=== PATIENT | female | born 1950 | race Caucasian/White ===

== ENCOUNTER 2020-03-17 07:15 | Outpatient (REF) | payer MEDICARE, SELFPAY ==
[2020-03-17 09:00] LABS: Alanine Aminotransferase 19 U/L (0-31); Alkaline Phosphatase 78 U/L (39-117); Aspartate Amino Transferase 22 U/L (5-31); Bilirubin Total 0.5 mg/dL (0.0-1.0); Blood Urea Nitrogen 13 mg/dL (9-16); Cholesterol 190 mg/dL; Estimated Glomerular Filt Rate > 60; Glucose Fasting 100 mg/dL (60-99); HDL Cholesterol 76 mg/dL; LDL Cholesterol Calculated 104 mg/dl; Total Protein 6.2 g/dL (6.5-8.0); Triglycerides 52 mg/dL
[2020-03-17 09:12] LABS: TSH reflex Free T4 0.73 mIU/mL (0.32-4.0)
[2020-03-17 09:25] LABS: Anion Gap 13 (12-20); Carbon Dioxide 29 mmol/L (22-29); Chloride 107 mmol/L (96-108); Potassium 4.2 mmol/l (3.3-5.1); Sodium 145 mmol/L (135-145)
== END 2020-03-17 07:16 | disposition home or self-care (01) ==
LOC: HO.LAB 07:15
PROVIDERS: Absent Provider Internal Medicine Endocrinology, Diabetes & Metabolism; PCP Internal Medicine; Visit Provider Internal Medicine
DX: E78.00 Pure hypercholesterolemia, unspecified (principal); E03.9 Hypothyroidism, unspecified
CPT/HCPCS: 36415; 80053; 80061; 84443

== ENCOUNTER 2020-05-19 10:54 | Outpatient (REF) | payer MEDICARE, SELFPAY ==
--- NOTE | ~2020-05-19 | XR_ITS ---
EXAMINATION: XR HUMERUS, LEFT CLINICAL INFORMATION: Left arm pain. COMPARISON: None TECHNIQUE: AP and lateral views of the left humerus. FINDINGS: The bones and soft tissues are normal. No fracture. Imaged portions of the shoulder and elbow are unremarkable. XR/XR humerus LT IMPRESSION: Unremarkable left humerus.
--- NOTE | ~2020-05-19 | XR_ITS ---
EXAMINATION: XR SHOULDER, LEFT CLINICAL INFORMATION: Left shoulder pain. COMPARISON: None TECHNIQUE: AP external rotation, Grashey, scapular Y, and axillary views of the left shoulder. FINDINGS: The bones and soft tissues are normal. No fracture. Glenohumeral and acromioclavicular alignment is anatomic with normal joint space. No abnormal soft tissue calcifications. XR/XR shoulder LT min 2V IMPRESSION: Unremarkable left shoulder.
== END 2020-05-19 10:55 | disposition home or self-care (01) ==
LOC: HO.XRAY 10:54
PROVIDERS: PCP Internal Medicine; Visit Provider Internal Medicine
DX: M25.512 Pain in left shoulder (principal); M79.602 Pain in left arm
CPT/HCPCS: 73030; 73060

== ENCOUNTER 2020-11-12 14:16 | Outpatient (REF) | payer SELFPAY ==
--- NOTE | 2020-11-12 16:25 | MHC.AU.CER ---
Cerumen Removal- Binaural Date of Visit: 11/12/20 Medical Conditions: No Conditions of Concern for Cerumen Removal Medications: No Medications of Concern for Cerumen Removal Procedure: Right Ear: Unusual Findings: Narrow Canal(s), Deeply Impacted Cerumen Prior to Removal: Complete Occlusion Outcome of Procedure: All cerumen was removed. Tympanic membrane is now visible. Other: Used suction and lighted curette Left Ear: Unusual Findings: Narrow Canal(s), Reddended Skin, Deeply Impacted Cerumen Prior to Removal: Complete Occlusion Outcome of Procedure: Encountered difficulty removing cerumen. Cerumen softening drops used. Most cerumen was removed. Tympanic membrane is now visible. Irritation/Redness Other: Used suction, lighted curette, and alligator forceps Recommendations: Recommendations: Follow-up as needed. Use of cerumen drops, such as Debrox or EarWaxMD Diagnosis Code(s): Primary Diagnosis: H69.93 Unspecified Eustachian Tube Dysfunction, Bilateral Services Performed: Cerumen Removal (CPT 06954) Two Ears Signature: Provider: Imelda Kimbrough, CCC-A
== END 2020-11-12 14:17 | disposition home or self-care (01) ==
LOC: HO.HAP 14:16
PROVIDERS: Visit Provider Internal Medicine
DX: H69.93 Unspecified Eustachian tube disorder, bilateral (principal)
CPT/HCPCS: 92700

== ENCOUNTER 2020-12-07 07:44 | Outpatient (REF) | payer MEDICARE, SELFPAY ==
--- NOTE | 2020-12-07 09:50 | ECG_ITS ---
Test Reason : chest pain Blood Pressure : / mmHG Vent. Rate : 068 BPM Atrial Rate : 068 BPM P-R Int : 134 ms QRS Dur : 086 ms QT Int : 396 ms P-R-T Axes : 017 060 012 degrees QTc Int : 421 ms Normal sinus rhythm Septal infarct , age undetermined Abnormal ECG No previous ECGs available Referred By: Nicole Carey Electronically Signed By:CARLOS BRISENO
[2020-12-07 11:04] LABS: Alanine Aminotransferase 17 U/L (0-31); Albumin Level 3.9 g/dL (3.5-5.0); Alkaline Phosphatase 63 U/L (39-117); Anion Gap 9 (12-20); Aspartate Amino Transferase 21 U/L (5-31); Bilirubin Total 0.7 mg/dL (0.0-1.0); Blood Urea Nitrogen 15 mg/dL (9-16); Calcium 9.3 mg/dL (8.4-10.2); Carbon Dioxide 30 mmol/L (22-29); Chloride 106 mmol/L (96-108); Cholesterol 196 mg/dL; Estimated Glomerular Filt Rate 58; Glucose Fasting 102 mg/dL (60-99); HDL Cholesterol 74 mg/dL; LDL Cholesterol Calculated 109 mg/dl; Potassium 4.3 mmol/L (3.3-5.1); Sodium 141 mmol/L (135-145); Total Protein 6.2 g/dL (6.5-8.0); Triglycerides 68 mg/dL
[2020-12-07 11:24] LABS: TSH reflex Free T4 0.55 uIU/mL (0.32-4.0)
== END 2020-12-07 07:45 | disposition home or self-care (01) ==
LOC: HO.10HDL 07:44
PROVIDERS: PCP Internal Medicine; Visit Provider Internal Medicine
DX: R07.9 Chest pain, unspecified (principal); E78.5 Hyperlipidemia, unspecified; E78.00 Pure hypercholesterolemia, unspecified; E03.9 Hypothyroidism, unspecified
CPT/HCPCS: 36415; 80053; 80061; 84443; 93005

== ENCOUNTER 2020-12-30 08:11 | Outpatient (REF) | payer MEDICARE, SELFPAY ==
--- NOTE | ~2020-12-30 | FL_ITS ---
EXAMINATION: XR GI SERIES CLINICAL INFORMATION: Epigastric pain. COMPARISON: None. TECHNIQUE: Routine upper GI air-contrast study was performed in upright and lying position. FINDINGS: Following oral administration of thick barium and effervescent granules, there is normal propagation of bolus from the oral cavity through the pharynx and esophagus and into the stomach without any evidence of obstruction, narrowing or stricture. On placing patient supine and prone lying, the course, caliber and peristalsis of stomach, duodenal bulb and the sweep are normal. No gastroesophageal reflux or hiatal hernia seen. FLUOROSCOPY TIME: 1.9 minutes. DOSE AREA PRODUCT: 13.072 uGy-m2 (microgray-meter squared). FL/FL upper GI series IMPRESSION: Unremarkable upper GI air-contrast study.
== END 2020-12-30 08:12 | disposition home or self-care (01) ==
LOC: HO.XRAY 08:11
PROVIDERS: Visit Provider Internal Medicine
DX: R10.13 Epigastric pain (principal)
CPT/HCPCS: 74240

== ENCOUNTER → 2021-01-06 07:51 | Outpatient (REF) | payer MEDICARE, SELFPAY ==
--- NOTE | 2021-01-06 08:00 | CA_ITS ---
Acquisition Time: 2021-01-06 08:12:45 Total Exercise Time: 00:05:30 Test Indications: Chest Pain Medications: PROLIA LEVOTHYROXINE ATORVASTATIN Protocol: MENDOZA Max HR: 144 BPM 94% of Pred: 152 BPM Max BP: 158/058 mmHG Max Work Load: 7.0 METS Exercise stress test with exercise 7 min 20 sec of mendoza protocol, with mild sob and mild chest tightness, with isolated PVC, with normotensive response to exercise, with EKG changes meeting criteria for ischemia: 1 - [address] depressions inferiorly, V3- V6, [address] elevation aVR with gradual improvement back to baseline in recovery. In Recovery her sob and chest tightness quickly resolved. EKG tracings and report reviewed with Dr Shannon. Pt informed of the above results. Instructed to start on Aspirin 81mg daily. Continue Atorvastatin. Light physical activity. Cardiology appnt will be moved to sooner date. Referred By: Nicole Carey Overread By: JAYNA MARTINEZ
== END ==
LOC: HO.CARD 07:51
PROVIDERS: Visit Provider Internal Medicine
DX: R94.31 Abnormal electrocardiogram [ECG] [EKG] (principal)
CPT/HCPCS: 93017

== ENCOUNTER → 2021-01-11 14:27 | Outpatient (BNVA) | payer MEDICARE, SELFPAY | PROVIDERS: PCP Internal Medicine; Referring Provider Internal Medicine; Visit Provider Internal Medicine | DX: R07.2 Precordial pain (principal); R94.39 Abnormal result of other cardiovascular function study | CPT/HCPCS: 99202 ==

== ENCOUNTER → 2021-01-18 10:51 | Outpatient (REF) | payer MEDICARE, SELFPAY ==
--- NOTE | 2021-01-18 11:00 | CA_ITS ---
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 The calculated ejection fraction is 69% by biplane method. - No obvious valvular pathology seen on this study. Findings Left Ventricle Normal left ventricular cavity size. The left ventricular systolic function is normal. The calculated ejection fraction is 69% by biplane method. There is no evidence of regional wall motion abnormalities. E/E prime ratio is between 8 and 15 consistent with indeterminate filling pressures. Evidence suggests grade I (mild) diastolic dysfunction. LV peak GLS -17.1%. Right Ventricle Normal right ventricular cavity size and systolic function. Atria Both atria are normal in size. Aortic Valve There is a normal trileaflet aortic valve. There is no aortic valve stenosis. There is no aortic valve regurgitation. Mitral Valve The mitral valve appears normal. There is mild mitral valve regurgitation. There is no mitral valve stenosis. Pulmonic Valve The pulmonic valve was not well visualized. Tricuspid Valve There is trace tricuspid valve regurgitation. The pulmonary artery systolic pressure is normal. Great Vessels The aortic annulus, sinuses of valsalva, and asc aorta are normal in size. Venous The inferior vena cava is normal in size and collapses greater than 50% with inspiration. Pericardium/Pleural There is no evidence of pericardial effusion. Prior Study Comparison No prior study available for comparison. Recommendations, Care & Conclusions No obvious valvular pathology seen on this study. Measurements 2D Linear Measurements IVSd: 0.84 0.6-0.9/0.6-1.0 cm LVIDd: 4.00 3.9-5.3/4.2-5.9 cm LVIDd Index: 2.63 2.4-3.2/2.2-3.1 cm/m2 LVIDs: 2.40 2.0-3.6 cm LVPWd: 0.83 0.7-1.1 cm Ao Root: 2.40 2.1-3.5 cm LA Diam: 2.90 2.7-3.8/3.0-4.0 cm LAIDs Index: 1.91 1.5-2.3 cm/m2 LV Mass: 122.41 67-162/88-224 g LV Mass Index: 80.54 43-95/49-115 g/m2 LVOT Diam: 1.80 3.0+(-)1.3 cm 2D Systolic Function EF 4C: 74.60 >55% EF 2C: 61.20 >55% EF BiP: 69.10 >55% Mitral Valve MV Pk E: 0.61 MV PK A: 0.91 MV Decel Time: 214.00 E/A: 0.70 E'Lateral: 9.25 E'Medial: 4.57 E/E' Med: 13.30 E/E' Lat: 6.60 PHT: 63.00 MVA PHT: 3.49 Decel [place]: 2.85 Aortic Valve AoV Pk Fabio: 1.40 AoV Pk Grad: 8.00 LVOT LVOT Pk Fabio: 1.03 LVOT Mn Fabio: 0.66 LVOT VTI: 0.23 LVOT Pk Grad: 4.00 LVOT Mn Grad: 2.00 LVOT Diam: 1.80 LVOT Area: 2.54 Diastolic Function MV Pk E: 0.61 MV Pk A: 0.91 E/A: 0.70 E'Medial: 4.57 E/E' Med: 13.30 E' Laterial: 9.25 E/E' Lat: 6.60 Right Ventricle TAPSE (mm): 2.08 Tricuspid Valve TR Pk Fabio: 2.08 TR Pk Grad: 17.00 RA Press: 3.00 RVSP: 20.00 Great Vessels Aorta Ao Root-2D: 2.40 2.0-3.7 cm Ao Asc: 2.90 2.1-3.4 cm Updated in Other Vendor System with Status of Final Galdino Shannon MD electronically signed on 01/19/2021 1:11:17 PM with status of Final
[2021-01-18 11:15] LABS: MANUAL DIFF FLAG NO
[2021-01-18 11:59] LABS: Basophils Percent Auto 0.4 % (0-2); Eosinophils Absolute Auto 0.1 X10*3/uL (0.0-0.4); Hematocrit 40.1 % (37.0-47.0); Hemoglobin 13.3 g/dl (12.0-16.0); Imm Gran Abs Auto 0.02 X10*3/uL (0.00-0.03); Imm Gran Pct Auto 0.4 % (0.0-0.4); Lymphocytes Absolute Auto 1.6 X10*3/uL (1.2-4.9); Lymphocytes Percent Auto 29.3 % (20-40); Mean Corpuscular HGB Conc 33.2 g/dl (31.0-35.0); Mean Corpuscular Hemoglobin 30.8 pg (27.0-33.0); Mean Corpuscular Volume 92.8 fL (80.0-98.0); Mean Platelet Volume 10.7 fL (9.4-12.3); Monocytes Absolute Auto 0.3 X10*3/uL (0.1-1.2); Monocytes Percent Auto 6.1 % (2-11); Neutrophils Absolute Auto 3.4 x10*3/uL (2.0-8.3); Neutrophils Percent Auto 61.8 % (45-73); Platelet Count 198 X10*3/uL (160-400); Red Blood Count 4.32 X10*6/uL (4.20-5.50); White Blood Count 5.4 X10*3/uL (4.8-10.8)
[2021-01-18 12:04] LABS: Prothrombin Time 11.4 SEC (9.9-13.0)
[2021-01-18 12:35] LABS: Anion Gap 12 (12-20); Blood Urea Nitrogen 14 mg/dL (9-16); Calcium 9.6 mg/dL (8.4-10.2); Carbon Dioxide 28 mmol/L (22-29); Chloride 105 mmol/L (96-108); Estimated Glomerular Filt Rate > 60; Glucose Random 98 mg/dL (60-115); Potassium 4.7 mmol/L (3.3-5.1); Sodium 140 mmol/L (135-145)
== END ==
LOC: HO.CARD 10:51
PROVIDERS: PCP Internal Medicine; Visit Provider Internal Medicine
DX: R07.2 Precordial pain (principal)
CPT/HCPCS: 36415; 80048; 85025; 85610; 93306; 93356

== ENCOUNTER 2021-01-25 12:42 | Outpatient (REF) | payer MEDICARE, SELFPAY ==
[2021-01-25 13:45] LABS: COVID-19 Test Negative (Negative)
== END 2021-01-25 12:43 | disposition home or self-care (01) ==
LOC: HO.LAB 12:42
PROVIDERS: PCP Internal Medicine; Visit Provider Internal Medicine
DX: Z20.822 Contact with and (suspected) exposure to COVID-19 (principal); R07.2 Precordial pain
CPT/HCPCS: 36415; 87635

== ENCOUNTER → 2021-02-11 13:53 | Outpatient (BNVA) | payer MEDICARE, SELFPAY | PROVIDERS: PCP Internal Medicine; Referring Provider Internal Medicine; Visit Provider Internal Medicine | DX: I25.10 Atherosclerotic heart disease of native coronary artery without angina pectoris (principal); I65.21 Occlusion and stenosis of right carotid artery; Z95.1 Presence of aortocoronary bypass graft; Z51.81 Encounter for therapeutic drug level monitoring; Z79.899 Other long term (current) drug therapy | CPT/HCPCS: 93005; 99212 ==

== ENCOUNTER 2021-02-22 09:18 | Outpatient (REF) | payer MEDICARE, SELFPAY ==
[2021-02-22 10:07] LABS: Hematocrit 35.8 % (37.0-47.0); Hemoglobin 11.6 g/dl (12.0-16.0); Mean Corpuscular HGB Conc 32.4 g/dl (31.0-35.0); Mean Corpuscular Hemoglobin 30.9 pg (27.0-33.0); Mean Corpuscular Volume 95.2 fL (80.0-98.0); Platelet Count 323 X10*3/uL (160-400); Red Blood Count 3.76 X10*6/uL (4.20-5.50); Red Cell Distribution Width 14.2 % (11.0-16.0)
[2021-02-22 10:41] LABS: Alanine Aminotransferase 16 U/L (0-31); Albumin Level 3.8 g/dL (3.5-5.0); Alkaline Phosphatase 109 U/L (39-117); Anion Gap 12 (12-20); Aspartate Amino Transferase 18 U/L (5-31); Bilirubin Total 0.3 mg/dL (0.0-1.0); Blood Urea Nitrogen 16 mg/dL (9-16); Calcium 9.3 mg/dL (8.4-10.2); Carbon Dioxide 26 mmol/L (22-29); Chloride 105 mmol/L (96-108); Estimated Glomerular Filt Rate 53; Glucose Random 118 mg/dL (60-115); Potassium 3.9 mmol/L (3.3-5.1); Sodium 139 mmol/L (135-145); Total Protein 6.3 g/dL (6.5-8.0)
== END 2021-02-22 09:19 | disposition home or self-care (01) ==
LOC: HO.10HDL 09:18
PROVIDERS: Visit Provider Nurse Practitioner Family
DX: Z95.1 Presence of aortocoronary bypass graft (principal)
CPT/HCPCS: 36415; 80053; 85027

== ENCOUNTER → 2021-04-15 08:25 | Outpatient (REF) | payer MEDICARE, SELFPAY ==
--- NOTE | 2021-04-15 08:28 | CA_ITS ---
Transthoracic Echocardiogram Patient (Last, First, Middle): Elsie Muñoz M Gender: Female Date of : 1950 Age: 71 Procedure Date: 04/15/2021 Procedure Type: Transthoracic Echocardiogram Location: OP Height: 152.4 cm Weight: 53.98 kg BSA: 1.50 m2 Heart Rate: bpm BP: 98 / 60 mmHg Telephone Clerk: DANIEL Referring MD: Galdino Shannon MD Symptoms: Z95.1 - Presence of aortocoronary bypass graft Study Quality: Good ECG Rhythm: Sinus Conclusions: - The left ventricular systolic function is normal. The calculated ejection fraction is 63% by biplane method. - No obvious valvular pathology seen on this study. Findings Left Ventricle Normal left ventricular cavity size. There is normal left ventricular wall thickness. The left ventricular systolic function is normal. The calculated ejection fraction is 63% by biplane method. There is no evidence of regional wall motion abnormalities. Diastolic function is normal for age. Right Ventricle Normal right ventricular cavity size. There is low normal right ventricular systolic function. Atria Both atria are normal in size. Aortic Valve There is a normal trileaflet aortic valve. There is mild calcification of the aortic valve. There is no aortic valve stenosis. There is no aortic valve regurgitation. Mitral Valve The mitral valve appears normal. There is trace mitral valve regurgitation. There is no mitral valve stenosis. Pulmonic Valve The pulmonic valve was not well visualized. Tricuspid Valve Normal tricuspid valve structure. There is mild tricuspid valve regurgitation. The pulmonary artery systolic pressure is normal. Great Vessels The aortic annulus, sinuses of valsalva, asc aorta, and aortic arch are normal in size. Venous The inferior vena cava is normal in size and collapses greater than 50% with inspiration. Pericardium/Pleural There is no evidence of pericardial effusion. Prior Study Comparison No significant change compared to prior study dated: 01/18/2021. Recommendations, Care & Conclusions No obvious valvular pathology seen on this study. Measurements 2D Linear Measurements IVSd: 0.83 0.6-0.9/0.6-1.0 cm LVIDd: 3.57 3.9-5.3/4.2-5.9 cm LVIDd Index: 2.38 2.4-3.2/2.2-3.1 cm/m2 LVIDs: 1.99 2.0-3.6 cm LVPWd: 1.05 0.7-1.1 cm Ao Root: 2.60 2.1-3.5 cm LA Diam: 3.00 2.7-3.8/3.0-4.0 cm LAIDs Index: 2.00 1.5-2.3 cm/m2 LV Mass: 120.85 67-162/88-224 g LV Mass Index: 80.57 43-95/49-115 g/m2 LVOT Diam: 1.80 3.0+(-)1.3 cm 2D Systolic Function EF 4C: 64.40 >55% EF 2C: 61.30 >55% EF BiP: 63.10 >55% Mitral Valve MV Pk E: 0.96 MV PK A: 0.78 MV Decel Time: 235.00 E/A: 1.20 E'Lateral: 12.70 E'Medial: 6.53 E/E' Med: 14.70 E/E' Lat: 7.60 PHT: 69.00 MVA PHT: 3.19 Decel [place]: 4.08 Aortic Valve AoV Pk Fabio: 1.70 AoV Mn Fabio: 1.20 AoV VTI: 0.38 AoV Pk Grad: 12.00 Aov Mn Grad: 6.00 SERENA Cont.VTI: 1.97 LVOT LVOT Pk Fabio: 1.10 LVOT Mn Fabio: 0.79 LVOT VTI: 0.30 LVOT Pk Grad: 5.00 LVOT Mn Grad: 3.00 LVOT Diam: 1.80 LVOT Area: 2.54 Diastolic Function MV Pk E: 0.96 MV Pk A: 0.78 E/A: 1.20 E'Medial: 6.53 E/E' Med: 14.70 E' Laterial: 12.70 E/E' Lat: 7.60 Right Ventricle TAPSE (mm): 17.70 TVS' Fabio: 9.03 Tricuspid Valve TR Pk Fabio: 2.32 TR Pk Grad: 22.00 RA Press: 3.00 RVSP: 25.00 Great Vessels Aorta Ao Root-2D: 2.60 2.0-3.7 cm Ao Asc: 2.60 2.1-3.4 cm Ao Arch: 2.40 Updated in Other Vendor System with Status of Final Galdino Shannon MD electronically signed on 04/17/2021 11:53:24 AM with status of Final
== END ==
LOC: HO.CARD 08:25
PROVIDERS: PCP Internal Medicine; Visit Provider Internal Medicine
DX: Z95.1 Presence of aortocoronary bypass graft (principal)
CPT/HCPCS: 93306

== ENCOUNTER 2021-04-22 08:24 | Outpatient (REF) | payer MEDICARE, SELFPAY ==
[2021-04-22 10:13] LABS: Cholesterol 150 mg/dL; HDL Cholesterol 65 mg/dL; LDL Cholesterol Calculated 75 mg/dl; Triglycerides 54 mg/dL
[2021-04-22 10:15] LABS: Alanine Aminotransferase 28 U/L (0-31); Albumin Level 4.1 g/dL (3.5-5.0); Alkaline Phosphatase 84 U/L (39-117); Anion Gap 11 (12-20); Aspartate Amino Transferase 28 U/L (5-31); Bilirubin Total 0.7 mg/dL (0.0-1.0); Blood Urea Nitrogen 20 mg/dL (9-16); Calcium 9.9 mg/dL (8.4-10.2); Carbon Dioxide 29 mmol/L (22-29); Chloride 103 mmol/L (96-108); Estimated Glomerular Filt Rate 52; Glucose Fasting 101 mg/dL (60-99); Potassium 4.4 mmol/L (3.3-5.1); Sodium 139 mmol/L (135-145); Total Protein 6.9 g/dL (6.5-8.0)
[2021-04-22 10:37] LABS: Thyroid Stimulating Hormone 0.48 uIU/mL (0.32-4.0)
== END 2021-04-22 08:25 | disposition home or self-care (01) ==
LOC: HO.LAB 08:24
PROVIDERS: PCP Internal Medicine; Referring Provider Internal Medicine; Visit Provider Internal Medicine
DX: E78.00 Pure hypercholesterolemia, unspecified (principal); E78.5 Hyperlipidemia, unspecified; E03.9 Hypothyroidism, unspecified; I25.10 Atherosclerotic heart disease of native coronary artery without angina pectoris; I65.21 Occlusion and stenosis of right carotid artery; Z79.899 Other long term (current) drug therapy; Z79.82 Long term (current) use of aspirin; Z95.1 Presence of aortocoronary bypass graft
CPT/HCPCS: 36415; 80053; 80061; 84443; 99212

== ENCOUNTER 2021-07-28 08:04 | Outpatient (REF) | payer MEDICARE, SELFPAY ==
--- NOTE | 2021-07-28 16:26 | MHC.AU.ANR ---
Adult Audiological Evaluation Date of Visit: 07/28/21 Reason for Appointment: Mrs. Muñoz was seen today for an audiological evaluation as recommended by her primary care physician. She notes that her PCP recommended having a baseline audiogram. Mrs. Muñoz denies any significant concerns for her hearing and feels she overall hears well. She denies any tinnitus, vertigo, or history of noise exposure. Does patient feel they have a hearing loss?: No Has hearing been tested previously?: No Hearing Handicap Inventory: HHIE SCORE: 0 Based on HHIE score, patient has: No perceived hearing handicap Ear History: Ear Infections in Childhood: Both Ears History of Ear Wax Buildup: Both Ears Medical History: Medical History: Heart Problems, Thyroid Disease Medical History (Other): Cardiac surgery 01/2021, child in 1984 and 1987, tonsillectomy/adenoidectomy, broken leg 1976 Allergies: NKA Medication List: Synthroid, statin, baby aspirin, metoprolol, multivitamin, Preservision, calcium Otoscopy: Right Ear: Unremarkable Left Ear: Unremarkable Tympanometry: Tympanometry performed due to: To assess integrity of the middle ear system Right Ear: Normal Middle Ear System (Type A) Left Ear: Normal Middle Ear System (Type A) Hearing Evaluation: Transducer(s) Used: Insert Earphones Method: Conventional Audiometry Stimuli Used: Pure Tones Right Ear: Description of Hearing: Normal hearing from 250-8000 Hz. Left Ear: Description of Hearing: Normal hearing from 250-8000 Hz. Speech Recognition Threshold (SRT): Method Used: Monitored Live Voice Stimuli Used: Spondee Words Right Ear: 10 dBHL Left Ear: 5 dBHL Word Discrimination: Method: Recorded Lists Word Lists Used: NU-6 Right Ear: 100% at 50 dBHL Left Ear: 100% at 50 dBHL Interpretation of Results: Today's evaluation indicates normal hearing, excellent speech understanding at a normal conversational volume, and normal middle-ear function bilaterally. Recommendations: No further audiological action is indicated at this time. Audiological re-evaluation if changes are noted. Diagnosis: Primary Diagnosis: H93.293 Abnormal Auditory Perception Services Performed: Services Performed: Pure Tone- Air (CPT 32433) Speech Audiometry Threshold, with Speech Recognition (CPT 43009) Tympanometry (CPT 14659) Signature: Provider: Imelda Kimbrough, CCC-A
== END 2021-07-28 08:05 | disposition home or self-care (01) ==
LOC: HO.SH 08:04
PROVIDERS: Visit Provider Internal Medicine
DX: Z01.118 Encounter for examination of ears and hearing with other abnormal findings (principal); H93.293 Other abnormal auditory perceptions, bilateral
CPT/HCPCS: 92552; 92556; 92567

== ENCOUNTER → 2021-10-26 07:50 | Outpatient (BNVA) | payer MEDICARE, SELFPAY | PROVIDERS: PCP Internal Medicine; Referring Provider Internal Medicine; Visit Provider Internal Medicine | DX: I25.10 Atherosclerotic heart disease of native coronary artery without angina pectoris (principal); I65.21 Occlusion and stenosis of right carotid artery; Z79.82 Long term (current) use of aspirin; Z79.899 Other long term (current) drug therapy; Z95.1 Presence of aortocoronary bypass graft | CPT/HCPCS: 99212 ==

== ENCOUNTER 2021-12-01 07:32 | Outpatient (REF) | payer MEDICARE, SELFPAY ==
[2021-12-01 10:58] LABS: Alanine Aminotransferase 52 U/L (0-31); Albumin Level 4.1 g/dL (3.5-5.0); Alkaline Phosphatase 76 U/L (39-117); Anion Gap 13 (12-20); Aspartate Amino Transferase 50 U/L (5-31); Bilirubin Total 0.9 mg/dL (0.0-1.0); Blood Urea Nitrogen 21 mg/dL (9-16); Calcium 9.4 mg/dL (8.4-10.2); Carbon Dioxide 29 mmol/L (22-29); Chloride 104 mmol/L (96-108); Cholesterol 158 mg/dL; Estimated Glomerular Filt Rate 54; Glucose Fasting 102 mg/dL (60-99); HDL Cholesterol 65 mg/dL; LDL Cholesterol Calculated 81 mg/dl; Potassium 4.2 mmol/L (3.3-5.1); Sodium 142 mmol/L (135-145); Total Protein 6.5 g/dL (6.5-8.0); Triglycerides 63 mg/dL
[2021-12-01 11:21] LABS: Thyroid Stimulating Hormone 0.96 uIU/mL (0.32-4.0)
== END 2021-12-01 07:33 | disposition home or self-care (01) ==
LOC: HO.10HDL 07:32
PROVIDERS: Absent Provider Internal Medicine Endocrinology, Diabetes & Metabolism; Visit Provider Internal Medicine
DX: Z13.89 Encounter for screening for other disorder (principal)
CPT/HCPCS: 36415; 80053; 80061; 84443

== ENCOUNTER 2021-12-01 08:39 | Outpatient (REF) | payer MEDICARE, SELFPAY ==
--- NOTE | ~2021-12-01 | US_ITS ---
EXAMINATION: US EXTRACRANIAL CAROTID DUPLEX, BILATERAL CLINICAL INFORMATION: Stenosis of the right carotid artery, history of aortocoronary bypass COMPARISON: None TECHNIQUE: Real-time ultrasound and Doppler techniques (integrating B-mode 2-D vascular images, Doppler spectral analysis and color-flow Doppler imaging) were utilized to interrogate the extracranial carotid arteries, the vertebral arteries and proximal subclavian arteries bilaterally. The degree of stenosis is determined by criteria similar to NASCET. FINDINGS: Right Side: 1. There is mild atherosclerotic plaque seen in the bifurcation/proximal ICA region. 2. The common carotid artery PSV proximally is 111 cm/s and distally 107 cm/s. 3. The proximal internal carotid artery velocities are 76 cm/s systolic and 14 cm/s diastolic. 4. The proximal external carotid artery PSV is 154 cm/s. 5. The vertebral artery shows antegrade flow. 6. The subclavian artery waveforms are normal. Left Side: 1. There is mild atherosclerotic plaque seen in the bifurcation/proximal ICA region. 2. The common carotid artery PSV proximally is 137 cm/s and distally 117 cm/s. 3. The proximal internal carotid artery velocities are 111 cm/s systolic and 28 cm/s diastolic. 4. The proximal external carotid artery PSV is 97 cm/s. 5. The vertebral artery shows antegrade flow. 6. The subclavian artery waveforms are normal. US/US carotid duplex BI IMPRESSION: 1. RIGHT: Minimal, non-hemodynamically significant stenosis of the proximal right internal carotid artery corresponding to a 0-49% stenosis by velocity criteria. 2. LEFT: Minimal, non-hemodynamically significant stenosis of the proximal left internal carotid artery corresponding to a 0-49% stenosis by velocity criteria.
== END 2021-12-01 08:40 | disposition home or self-care (01) ==
LOC: HO.HMGCX 08:39
PROVIDERS: PCP Internal Medicine; Visit Provider Internal Medicine
DX: I65.21 Occlusion and stenosis of right carotid artery (principal); E78.00 Pure hypercholesterolemia, unspecified; E78.5 Hyperlipidemia, unspecified; E03.9 Hypothyroidism, unspecified
CPT/HCPCS: 36415; 80053; 80061; 84443; 93880

== ENCOUNTER 2021-12-24 09:19 | Outpatient (REF) | payer SELFPAY ==
--- NOTE | 2021-12-24 10:00 | MHC.AU.CER ---
Cerumen Removal- Binaural Date of Visit: 12/24/21 Medical Conditions: No Conditions of Concern for Cerumen Removal Medications: No Medications of Concern for Cerumen Removal Procedure: Right Ear and Left Ear: Unusual Findings: No Unusual Findings Prior to Removal: Clear Canal Outcome of Procedure: N/A Other: Elsie returned for wax removal, as she has had it completed in the past and wanted to maintain clear ear canals. Otoscopy prior to wax removal revealed clear canals with visible tympanic membranes, bilaterally. Wax removal is not warranted at this time. Recommendations: Follow-up as needed Diagnosis Code(s): Primary Diagnosis: Z01.10 Hearing or vestibular exam without abnormal findings Signature: Provider: Vanesa Dowell, CCC-A
== END 2021-12-24 09:20 | disposition home or self-care (01) ==
LOC: HO.HAP 09:19
PROVIDERS: Visit Provider Internal Medicine
DX: Z13.89 Encounter for screening for other disorder (principal)
CPT/HCPCS: 92621; 92700

== ENCOUNTER 2022-12-13 07:48 | Outpatient (AMB) | payer MEDICARE, SELFPAY ==
[2022-12-13 07:56] VITALS: BP 112/68; PULSE 58; BMI 23.4
--- NOTE | 2022-12-13 07:56 | MHC.PC.OV ---
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: No Accompanied by: Daughter Allergies No Known Allergies Allergy (Verified 12/13/22 08:06) Medication List - Last Reconciled 12/13/22 by Nicole Craey MD aspirin 81 mg PO DAILY atorvastatin 80 mg PO DAILY calcium carbonate (Calcium 500) 500 mg PO DAILY denosumab (Prolia) 60 mg subcut [id number] latanoprost 0.005% 0 drps ophthalmic (eye) levothyroxine 100 mcg PO QAM metoprolol succinate ER 50 mg PO DAILY vitamins A,C,D-vucy-jksvdl 4,296 mcg-226 mg-90 mg (PreserVision AREDS) 1 cap PO BID Tobacco use date assessed: 07/13/22 Fall risk assessment: No Falls in past year Last assessed Fall Risk: 12/13/22 Dental Screening Dental Screen Date: 12/13/22 Did you have a dental visit in the last 12 months?: Yes Did you have a dental problem in the last 6 months where you did not have access to dental care?: No Was dental information given to patient?: Patient has dentist HPI HPI Comments History of Present Illness Details This is a 72-year-old female with hypothyroidism, osteoporosis that has improved to osteopenia, pure hypercholesterolemia, atherosclerotic cardiovascular disease and transaminitis that comes today accompanied by daughter Mikki for follow-up on her conditions. Hypothyroidism is follow by Endocrinology. Last bone density test was May 2022 showing osteopenia and she is currently on Prolia. Lipid panel was order. On aspirin for secondary prophylaxis of atherosclerotic cardiovascular disease. She had a CABG x2 in 2020 and follows with Cardiology. Last labs show mild transaminitis that will be repeated. She denies any jaundice. No chest pain or shortness of breath. [facility] Medical History Hearing loss Hospital discharge follow-up Encounter for monitoring amiodarone therapy Abnormal EKG Epigastric pain Chest pain Osteoporosis Left shoulder pain Left arm pain Hypothyroidism Pure hypercholesterolemia Surgical History History of dental surgery History of coronary artery bypass graft History of colonoscopy History of wisdom tooth extraction Family History Father Diabetes Mother Bone marrow failure Paternal Grandfather Past heart attack Brother Myocardial infarction Brother Stroke Family/Other CVD (cardiovascular disease) Social History Housing: House Alcohol intake: current Alcohol intake frequency: a few times a month Alcohol type: wine and other Patient Tobacco Use Status: Never used Tobacco e-Cigarette/Vaping Use: Never Used Second Hand Smoke Exposure: No service: No Current occupational status: retired Cognitive needs: No Hearing needs: No Vision needs: No Questionnaire Thrive Questionnaire Date Thrive assessed: 04/13/22 MARCO A-7 AMB Questionnaire MARCO A-7 Date MARCO A - 7 assessed: 04/13/22 Source: Developed by Drs. León Muniz, Marimar Trujillo, Og Cunha and colleagues, with an educational janeth from [employer]. Review of Systems Const All systems reviewed & are unremarkable except as noted in HPI and below Eyes Reports no additional complaints, Denies change in vision and Denies other visual disturbances Card Denies chest pain at rest, Denies chest pain with activity, Denies edema, Denies irregular heart rhythm, Denies claudication, Denies dyspnea, Denies dyspnea on exertion, Denies orthopnea, Denies paroxysmal nocturnal dyspnea and Denies slow heart rate Resp Denies cough, Denies dyspnea and Denies dyspnea on exertion GI Denies abdominal pain, Denies change in bowel habits, Denies excessive flatus, Denies nausea and Denies vomiting Denies urinary incontinence, Denies urinary hesitancy and Denies urinary urgency Musc Denies abnormal gait, Denies atrophy, Denies deformity and Denies limited range of motion Skin/Breast Denies bleeding lesions, Denies changing lesions and Denies rash Neuro Denies abnormal gait and Denies lack of coordination Physical exam (Primary Care) Vital Signs: Last Vital Signs BP 112/68 12/13/22 07:56 BMI result Body Mass Index 23.4 Tobacco/Smoking Status: Tobacco use Status Tobacco use date assessed 07/13/22 12/13/22 07:57 Patient Tobacco Use Status Never used Tobacco 12/13/22 07:57 e-Cigarette/Vaping Use Never Used 12/13/22 07:57 Thrive Assessment: Date of Thrive Assessment Date Thrive assessed 04/13/22 12/13/22 07:57 Eyes General: appearance normal, both eyes and all related structures Eyelids: Yes eyelids normal Conjunctivae: conjunctivae normal Neck Neck: Yes normal visual inspection and Yes supple Resp Effort & Inspection: normal respiratory effort Auscultation: clear to auscultation bilaterally Cardio Jugular venous distension: no JVD Rate: regular rate Rhythm: regular rhythm Heart sounds: S1 normal heart sound present and S2 normal heart sound present Extrem General: Yes full ROM Assessment and Plan Assessment & Plan (1) Hypothyroidism: Code(s): E03.9 - Hypothyroidism, unspecified Qualifiers: Hypothyroidism type: unspecified Qualified Code(s): E03.9 - Hypothyroidism, unspecified Plan: Continue levothyroxine. Follow-up with endocrinology. (2) Pure hypercholesterolemia: Code(s): E78.00 - Pure hypercholesterolemia, unspecified Plan: Continue statins. Repeat lipid panel. LDL goal is less than 70. (3) Osteoporosis: Code(s): M81.0 - Age-related osteoporosis without current pathological fracture Qualifiers: Osteoporosis type: age-related Presence of current pathological fracture: without current pathological fracture Qualified Code(s): M81.0 - Age-related osteoporosis without current pathological fracture Plan: Continue Prolia. Next bone density test is 2024. (4) Transaminitis: Code(s): R74.01 - Elevation of levels of liver transaminase levels Plan: Repeat liver enzymes. (5) Atherosclerotic cardiovascular disease: Code(s): I25.10 - Atherosclerotic heart disease of [place] coronary artery without angina pectoris Plan: Continue aspirin for secondary prophylaxis. Follow-up with Cardiology. Orders: Orders Complete Blood Count Auto Diff Today D64.9 - Anemia, unspecified IRON PROFILE Today D64.9 - Anemia, unspecified Coding Level of Care Code Est Pt Level 4 (08421) Diagnoses Hypothyroidism, unspecified type E03.9 Hypothyroidism type: unspecified Pure hypercholesterolemia E78.00 Age-related osteoporosis without current pathological fracture M81.0 Osteoporosis type: age-related Presence of current pathological fracture: without current pathological fracture Transaminitis R74.01 Atherosclerotic cardiovascular disease I25.10 Time Spent (min) 22
== END 2022-12-13 08:25 | disposition home or self-care (01) ==
PROVIDERS: Visit Provider Internal Medicine
DX: E03.9 Hypothyroidism, unspecified (principal); E78.00 Pure hypercholesterolemia, unspecified; M81.0 Age-related osteoporosis without current pathological fracture; R74.01 Elevation of levels of liver transaminase levels; I25.10 Atherosclerotic heart disease of native coronary artery without angina pectoris
CPT/HCPCS: 99214

== ENCOUNTER 2022-12-13 12:48 | Outpatient (AMB) | payer MEDICARE, SELFPAY ==
--- NOTE | 2022-12-13 12:50 | A.OFFVIS_ITS ---
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 Analyst Required: No Accompanied by: Self / Same As Patient Allergies No Known Allergies Allergy (Verified 12/13/22 12:52) Medication List - Last Reconciled 12/13/22 by Galdino Shannon MD aspirin 81 mg PO DAILY atorvastatin 80 mg PO DAILY calcium carbonate (Calcium 500) 500 mg PO DAILY denosumab (Prolia) 60 mg subcut [id number] latanoprost 0.005% 0 drps ophthalmic (eye) levothyroxine 100 mcg PO QAM metoprolol succinate ER 50 mg PO DAILY vitamins A,C,I-daji-qkwggv 4,296 mcg-226 mg-90 mg (PreserVision AREDS) 1 cap PO BID HPI HPI Comments History of Present Illness Details Elsie returns for follow-up regarding coronary artery disease and coronary artery bypass surgery. She also needs preoperative stratification for knee surgery. Overall, doing good. No complaints like angina or shortness of breath or in fact anything cardiac sounding. Getting along fine. [facility] Medical History Hearing loss Hospital discharge follow-up Encounter for monitoring amiodarone therapy Abnormal EKG Epigastric pain Chest pain Osteoporosis Left shoulder pain Left arm pain Hypothyroidism Pure hypercholesterolemia Surgical History History of dental surgery History of coronary artery bypass graft History of colonoscopy History of wisdom tooth extraction Family History Father Diabetes Mother Bone marrow failure Paternal Grandfather Past heart attack Brother Myocardial infarction Brother Stroke Family/Other CVD (cardiovascular disease) Social History Housing: House Alcohol intake: current Alcohol intake frequency: a few times a month Alcohol type: wine and other Patient Tobacco Use Status: Never used Tobacco e-Cigarette/Vaping Use: Never Used Second Hand Smoke Exposure: No service: No Current occupational status: retired Cognitive needs: No Hearing needs: No Vision needs: No Review of Systems Const Denies weakness ENT Denies dizziness Card Denies chest pain, Denies chest pain with activity, Denies syncope, Denies rapid heart rate, Denies pedal edema, Denies edema, Denies leg edema, Denies lightheadedness, Denies palpitations, Denies dyspnea, Denies dyspnea on exertion and Denies orthopnea Resp Denies cough, Denies dyspnea and Denies dyspnea on exertion GI Denies hematochezia and Denies change in stool character Musc Denies abnormal gait, Denies muscle cramps, Denies muscle weakness, Denies numbness, Denies radiating pain into limb and Denies tingling Neuro Denies abnormal gait, Denies dizziness, Denies syncope, Denies numbness, Denies tingling and Denies weakness Endo Denies palpitations Physical Exam Vital Signs: Last Vital Signs Pulse 55 12/13/22 12:51 BP 106/54 L 12/13/22 12:51 BMI result Body Mass Index 23.8 Const General: comfortable and no acute distress Orientation/consciousness: patient oriented x3 HEENT Other: Unremarkable Head: Yes normal to inspection Neck Neck: Yes normal visual inspection Chest Chest palpation & inspection: normal inspection of the chest Resp Auscultation: clear to auscultation bilaterally Cardio Palpation: normal PMI Heart sounds: S1 normal heart sound present, S2 normal heart sound present, no gallops, no murmurs and no rubs GI Palpation (GI): Soft to palpation Back/Spine/Pelvis Other: unremarkable Skin General skin exam: no rashes or lesions noted Neuro General: patient oriented x3 Extrem General: Yes normal to inspection Psych Mental Status: mental status grossly normal Office Procedures EKG Details: EKG with sinus bradycardia 55/Min; cannot exclude old septal infarct; normal TX and corrected QT. similar to prior. 60622-Tvskloesjqgdgleoc, Complete Assessment & Plan Assessment & Plan (1) Preoperative cardiovascular examination: Code(s): Z01.810 - Encounter for preprocedural cardiovascular examination Plan: Intermediate cardiac risk for knee surgery. Cardiac risks discussed in detail including perioperative myocardial infarction. Patient understands. May proceed. (2) Atherosclerotic cardiovascular disease: Code(s): I25.10 - Atherosclerotic heart disease of [place] coronary artery without angina pectoris Plan: Continue aspirin and statins. She does get mild orthostatic dizziness and hence decrease the dose of metoprolol ER from 50 mg 25 mg. Possibly stop in the future. Discussed. (3) Status post aorto-coronary artery bypass graft: Code(s): Z95.1 - Presence of aortocoronary bypass graft Plan: Recovered completely. Medications: New metoprolol succinate ER (Toprol XL) 25 mg PO DAILY 90 tabs 3RF Discontinued metoprolol succinate ER Discontinued Reason: Doctor's Order 50 mg PO DAILY 90 tabs 3RF Coding Level of Care Code Est Pt Level 4 (35091) Diagnoses Preoperative cardiovascular examination Z01.810 Atherosclerotic cardiovascular disease I25.10 Status post aorto-coronary artery bypass graft Z95.1 CPT Codes EKG - CPT: 29649-Xbszmqclzegtpoego, Complete ([id number])
[2022-12-13 12:51] VITALS: BP 106/54; PULSE 55; BMI 23.8
== END 2022-12-13 13:18 | disposition home or self-care (01) ==
PROVIDERS: PCP Internal Medicine; Referring Provider Internal Medicine; Visit Provider Internal Medicine
DX: I25.10 Atherosclerotic heart disease of native coronary artery without angina pectoris (principal); Z95.1 Presence of aortocoronary bypass graft; Z01.810 Encounter for preprocedural cardiovascular examination; R00.1 Bradycardia, unspecified
CPT/HCPCS: 93010; 99214

== ENCOUNTER → 2022-12-13 12:48 | Outpatient (BNVA) | payer MEDICARE, SELFPAY | PROVIDERS: PCP Internal Medicine; Referring Provider Internal Medicine; Visit Provider Internal Medicine | DX: Z01.810 Encounter for preprocedural cardiovascular examination (principal); I25.10 Atherosclerotic heart disease of native coronary artery without angina pectoris; Z79.82 Long term (current) use of aspirin; Z79.899 Other long term (current) drug therapy; Z95.1 Presence of aortocoronary bypass graft | CPT/HCPCS: 93005; 99212 ==

== ENCOUNTER 2022-12-14 08:04 | Outpatient (REF) | payer MEDICARE, SELFPAY ==
[2022-12-14 10:21] LABS: MANUAL DIFF FLAG NO
[2022-12-14 10:26] LABS: Basophils Percent Auto 0.6 % (0-2); Eosinophils Absolute Auto 0.1 X10*3/uL (0.0-0.4); Eosinophils Percent Auto 1.7 % (0-4); Hematocrit 40.9 % (37.0-47.0); Hemoglobin 13.6 g/dl (12.0-16.0); Imm Gran Abs Auto 0.01 X10*3/uL (0.00-0.03); Imm Gran Pct Auto 0.2 % (0.0-0.4); Lymphocytes Absolute Auto 1.3 X10*3/uL (1.2-4.9); Lymphocytes Percent Auto 20.2 % (20-40); Mean Corpuscular HGB Conc 33.3 g/dl (31.0-35.0); Mean Corpuscular Hemoglobin 30.9 pg (27.0-33.0); Monocytes Absolute Auto 0.5 X10*3/uL (0.1-1.2); Monocytes Percent Auto 7.6 % (2-11); Neutrophils Absolute Auto 4.4 x10*3/uL (2.0-8.3); Neutrophils Percent Auto 69.7 % (45-73); Platelet Count 181 X10*3/uL (160-400); Red Cell Distribution Width 12.7 % (11.0-16.0); White Blood Count 6.4 X10*3/uL (4.8-10.8)
[2022-12-14 10:48] LABS: Alanine Aminotransferase 27 U/L (0-31); Albumin Level 3.9 g/dL (3.5-5.0); Alkaline Phosphatase 78 U/L (39-117); Anion Gap 11 (12-20); Aspartate Amino Transferase 34 U/L (5-31); Bilirubin Total 0.7 mg/dL (0.0-1.0); Blood Urea Nitrogen 15 mg/dL (9-16); Calcium 9.7 mg/dL (8.4-10.2); Carbon Dioxide 28 mmol/L (22-29); Chloride 106 mmol/L (96-108); Cholesterol 152 mg/dL (<200); Estimated Glomerular Filt Rate 55; Glucose Fasting 104 mg/dL (60-99); HDL Cholesterol 69 mg/dL (>40); Iron 79 mcg/dL (30-160); LDL Cholesterol Calculated 71 mg/dL (<100); Percent Iron Saturation 29 % (15-50); Potassium 3.9 mmol/L (3.3-5.1); Sodium 141 mmol/L (135-145); Total Iron Binding Capacity 270 mcg/dL (228-428); Total Protein 6.7 g/dL (6.5-8.0); Triglycerides 61 mg/dL (<150); Unsaturated Iron Binding 191 ug/dL
[2022-12-14 11:03] LABS: Vitamin D 25-OH Total 46.8 ng/mL (>30)
== END 2022-12-14 08:05 | disposition home or self-care (01) ==
LOC: HO.10HDL 08:04
PROVIDERS: Visit Provider Internal Medicine
DX: D64.9 Anemia, unspecified (principal); M81.0 Age-related osteoporosis without current pathological fracture; E78.5 Hyperlipidemia, unspecified; E55.9 Vitamin D deficiency, unspecified
CPT/HCPCS: 36415; 80053; 80061; 82306; 83540; 85025

== ENCOUNTER 2023-07-11 07:40 | Outpatient (AMB) | payer MEDICARE, SELFPAY ==
--- NOTE | 2023-07-11 07:45 | AM.OFFVISMDC ---
Intake Vital Signs 07/11/23 07:52 Height 5 ft 1 in Weight 121 lb BMI 22.9 BP 114/60 Blood Pressure Location Lt brachial Position Sitting Intake Visit Reasons: GILBERT G0439 Intake Note: Patient here for subsequent annual wellness visit Radiological Defense Officer Required: No Accompanied by: Self / Same As Patient Allergies No Known Allergies Allergy (Verified 07/11/23 08:05) Medication List - Last Reconciled 07/11/23 by Nicole Carey MD aspirin 81 mg PO DAILY atorvastatin 80 mg PO DAILY calcium carbonate (Calcium 500) 500 mg PO DAILY denosumab (Prolia) 60 mg subcut [id number] latanoprost 0.005% 0 drps ophthalmic (eye) levothyroxine 100 mcg PO QAM metoprolol succinate ER (Toprol XL) 25 mg PO DAILY vitamins A,C,D-nlzo-mhdlqy 4,296 mcg-226 mg-90 mg (PreserVision AREDS) 1 cap PO BID HPI HPI Comments History of Present Illness Details This is a 73-year-old female that comes for her Medicare annual wellness exam. PPP handed intubation. Walks with no assistive device. Will have bone density again this year. Mammogram was already done this year and was normal as per patient. Colonoscopy done 2015 and next 1 should be 2025. No chest pain or shortness of breath. No acute complaints. Endocrinology follows her thyroid. Osteoporosis is follow by OBGYN. Has ophthalmology for her glaucoma. Up-to-date on her vaccines. Healthcare proxy is her son but is not on file. [facility] Medical History (Updated 07/11/23 @ 09:02 by Nicole Carey MD) Hearing loss Hospital discharge follow-up Encounter for monitoring amiodarone therapy Abnormal EKG Epigastric pain Chest pain Osteoporosis Left shoulder pain Left arm pain Hypothyroidism Pure hypercholesterolemia Surgical History History of total right knee replacement History of dental surgery History of coronary artery bypass graft History of colonoscopy History of wisdom tooth extraction Family History (Updated 07/11/23 @ 08:10 by Nicole Carey MD) Father Diabetes Mother Bone marrow failure Paternal Grandfather Past heart attack Brother Myocardial infarction Stroke Family/Other CVD (cardiovascular disease) Social History (Updated 04/30/24 @ 08:11 by Nicole Carey MD) Housing: House Alcohol intake: current Alcohol intake frequency: a few times a month Alcohol type: wine, hard liquor and other Patient Tobacco Use Status: Never used Tobacco e-Cigarette/Vaping Use: Never Used Second Hand Smoke Exposure: No service: No Current occupational status: retired Cognitive needs: No Hearing needs: No Vision needs: No Questionnaire Medicare Wellness Checkup [age] What gender do you identify with?: female During the past 4 weeks, how much have you been bothered by emotional problems such as feeling anxious, depressed, irritable, sad or downhearted, and blue?: not at all During the past 4 weeks, has your physical & emotional health limited your social activities with family, friends, neighbors, or groups?: not at all During the past 4 weeks, how much bodily pain have you generally had?: very mild pain During the past 4 weeks, was someone available to help you if you needed & wanted help?: no, not at all During the past 4 weeks, what was the hardest physical activity you could do for at least 2 minutes?: heavy Can you get to places out of walking distance without help? (For eg., can you travel alone on buses, taxis or drive your car?): Yes Can you go shopping for groceries or clothes without someone's help?: Yes Can you prepare your own meals?: Yes Can you do your housework without help?: Yes Because of any health problems, do you need the help of another person with your personal care needs such as eating, bathing, dressing or getting around the house?: No Can you handle your own money without help?: Yes During the past 4 weeks, how would you rate your health in general?: excellent During the past 4 weeks how have things been going for you?: pretty well Are you having difficulties driving your car?: no Do you always fasten your seat belt when you are in a car?: yes, usually During past 4 weeks, have you been bothered by the following: never: Falling or dizzy when standing up, Sexual problems?, Trouble eating well?, Teeth or denture problems? and Problems using the telephone? and seldom: Tiredness or fatigue? Have you fallen 2 or more times in the past year?: No Are you afraid of falling?: No Are you a smoker?: no During the past 4 weeks, how many drinks of wine, beer, or other alcoholic beverages did you have?: 1 drink or less per week Do you exercise for about 20 minutes 3 or more times a week?: yes, most of the time Have you been given information to help with the following?: yes: Hazards in your house that might hurt you? and yes: Keeping track of your medications? How often do you have trouble taking medicines the way you have been told to take them?: I always take medicine as prescribed How confident are you that you can control & manage most of your health problems?: very confident What is your race?: White Mini Mental State Exam (MMSE) Orientation What is the (year) (season) (date) (day) (month)?: year, season, date, day and month Where are we (state) (county) (town or city) (hospital) (floor)?: state, county, town or city, hospital/clinic and floor Registration Name of 3 unrelated objects clearly and slowly, then ask patient to repeat all 3 of them. (1st repeat determines score. Make sure they can repeat all three): object 1, object 2 and object 3 Attention & Calculation (CHOOSE ONE) Spell WORLD backwards (DLROW): 5 letters Recall Ask patient to repeat the 3 items from question #3.: object 1, object 2 and object 3 Language Show patient a wristwatch & ask what it is. Repeat for pencil.: watch and pencil Ask the patient to repeat the phrase 'No ifs, ands, or buts' after you.: correct Ask the patient to 'take a piece of paper with their right hand' 'fold paper in half' 'place paper on floor': take paper in right hand, fold paper in half and place paper on floor Print the sentence 'CLOSE YOUR EYES' on a piece. If patient actually closes eyes then score.: followed written direction Give patient a blank piece of paper & ask to write a sentence. Score if it contains a noun & verb.: sentence contains subject and verb Ask patient to copy figure of intersecting pentagons exactly. Score if all 10 angles & 2 intersects are included.: all 10 angles present & 2 are intersected Score Score: 30 Activity of Daily Living Bathing - sponge bath, tub bath or shower: receives no assistance (gets in/out by self, if usual bathing means Dressing - getting clothes from closets & drawers, including inner/outer garments & fasteners.: gets clothes & gets completely dressed without help Toileting - going to the 'toilet room' for urine/bowel elimination & cleaning self/arranging clothes: goes to toilet room, cleans self, arranges clothes without help Transfer: moves in & out of bed and chair without help (may use support object) Continence: controls urination/bowel movements completely by self Feeding: feeds self without help Total Score: 0 Information obtained from: patient Using telephone: independent Traveling: independent Shopping: independent Preparing meals: independent Housework: independent Taking medicine: independent Managing money: independent PHQ-9 Over the last 2 weeks, how often have you been bothered by any of the following problems? 1. Little interest or pleasure in doing things: not at all 2. Feeling down, depressed, or hopeless: not at all 3. Trouble falling or staying asleep, or sleeping too much: nearly every day 4. Feeling tired or having little energy: several days 5. Poor appetite or overeating: not at all 6. Feeling bad about yourself - or that you are a failure or have let yourself or your family down: not at all 7. Trouble concentrating on things, such as reading the newspaper or watching television: not at all 8. Moving or speaking so slowly that other people could have noticed. Or the opposite - being so fidgety or restless that you have been moving around a lot more than usual: not at all 9. Thoughts that you would be better off or of hurting yourself in some way: not at all Total score: 4 Depression Screening Interpretation: Negative Depression Screening Done: Yes 33395 - PHQ-9 Billing: Yes Source: Developed by Drs. León Muniz, Marimar Trujillo, Og Cunha and colleagues, with an educational janeth from [employer]. AUDIT C Alcohol Use Questionnaire (AUDIT-C) 1. How often do you have a drink containing alcohol?: 2-4 times a month 2. How many drinks containing alcohol do you have on a typical day when you are drinking?: 1 or 2 3. How often do you have six or more drinks on one occasion?: Never Total Score: 2 Score Reviewed/Action Taken: No Thrive Questionnaire Date Thrive assessed: 07/11/23 I am a: Patient What is your living situation today?: I have a steady place to live Within the past 12 months, did the food you bought not last and you didn't have the money to get more?: Never true Within the past 12 months, did you worry whether your food would run out before you got money to buy more?: Never true Do you have trouble paying for medicines?: No Do you have trouble getting transportation to medical appointments?: No Do you have trouble paying your heating and electricity bill?: No Do you have trouble taking care of your child, family member or friend?: No Do you have trouble with day-to-day activities such as bathing, preparing meals, shopping, managing finances, etc.?: No Are you currently unemployed and looking for a job?: No Are you interested in more education?: No Please select the resources that you would like help with: None Currently or been in a relationship where the following occur: no concerns reported THRIVE Score: 0 Fall Risk Assessment Fall Risk Assessment Fall risk assessment: No Falls in past year MARCO A-7 AMB Questionnaire MARCO A-7 Date MARCO A - 7 assessed: 07/11/23 Feeling nervous, anxious, or on edge: 0 = Not at all Not being able to stop or control worryin = Not at all Worrying too much about different things: 0 = Not at all Trouble relaxin = Not at all Being so restless that it is hard to sit still: 0 = Not at all Becoming easily annoyed or irritable: 0 = Not at all Feeling afraid as if something awful might happen: 0 = Not at all Total MARCO A-7 score (0-4 normal; 5-9 mild; 10-14 moderate; 15-21 severe): 0 Source: Developed by Drs. León Muniz, Marimar Trujillo, Og Cunha and colleagues, with an educational janeth from [employer]. Review of Systems Const All systems reviewed & are unremarkable except as noted in HPI and below ENT Reports Normal hearing present Card Denies chest pain at rest, Denies chest pain with activity, Denies edema, Denies irregular heart rhythm, Denies claudication, Denies dyspnea, Denies dyspnea on exertion, Denies orthopnea, Denies paroxysmal nocturnal dyspnea and Denies slow heart rate Resp Denies cough, Denies dyspnea and Denies dyspnea on exertion GI Denies abdominal pain, Denies change in bowel habits, Denies excessive flatus, Denies nausea and Denies vomiting Denies urinary incontinence, Denies urinary hesitancy and Denies urinary urgency Neuro Reports Normal hearing present, Denies behavioral changes, Denies confusion and Denies lack of coordination Psych Denies behavioral changes and Denies confusion Physical Exam Vital Signs: Last Vital Signs BP 114/60 07/11/23 07:52 BMI result Body Mass Index 22.9 Const General: No confusion Orientation/consciousness: patient oriented x3 and No confusion Resp Effort & Inspection: normal respiratory effort Auscultation: clear to auscultation bilaterally Cardio Jugular venous distension: no JVD Rate: regular rate Rhythm: regular rhythm Heart sounds: S1 normal heart sound present and S2 normal heart sound present Neuro General: patient oriented x3, no focal motor deficits and No confusion Cranial nerves: Yes Normal hearing present Cognition (Neuro): normal cognition Gait exam (Neuro): Normal gait present Romberg Test: Negative Extrem General: Yes full ROM Psych Appearance: grossly normal Assessment & Plan Assessment & Plan (1) Encounter for Medicare annual wellness exam: Code(s): Z00.00 - Encounter for general adult medical examination without abnormal findings Plan: Repeating a year. Orders: Orders Comprehensive Young Harris. Panel Fast Today R73.02 - Impaired glucose tolerance (oral) Quality Reporting (2019) Fall Risk Screening ([facility] 139) Fall risk assessment: No Falls in past year Depression/Bipolar (159/160/161/177) PHQ-9: Total score: 4 Coding Level of Care Code Medicare Subsequent (G0439) Diagnoses Encounter for Medicare annual wellness exam Z00.00 CPT Codes Advance Care Planning - Time spent: 1-15 minutes, on File ([id number]) Time Spent (min) 40 Advance Care Planning Advance Care Planning discussion: Exists, not on file Date of discussion: 07/11/23 Who was present: patient and me Forms completed: Health Care Proxy Time spent: 1-15 minutes, on File Actual minutes spent: 1 Did not discuss due to Cultural/Spiritual beliefs: No
[2023-07-11 07:52] VITALS: BP 114/60; BMI 22.9
== END 2023-07-11 08:31 | disposition home or self-care (01) ==
PROVIDERS: Visit Provider Internal Medicine
DX: Z00.00 Encounter for general adult medical examination without abnormal findings (principal)
CPT/HCPCS: 1123F; G0439

== ENCOUNTER 2023-07-18 07:44 | Outpatient (REF) | payer MEDICARE, SELFPAY ==
[2023-07-18 11:51] LABS: Alanine Aminotransferase 16 U/L (0-31); Albumin Level 3.8 g/dL (3.5-5.0); Alkaline Phosphatase 100 U/L (39-117); Anion Gap 13 (12-20); Aspartate Amino Transferase 24 U/L (5-31); Bilirubin Total 0.6 mg/dL (0.0-1.0); Blood Urea Nitrogen 17 mg/dL (9-16); Calcium 9.5 mg/dL (8.4-10.2); Carbon Dioxide 26 mmol/L (22-29); Chloride 107 mmol/L (96-108); Estimated Glomerular Filt Rate > 60; Glucose Fasting 98 mg/dL (60-99); Sodium 142 mmol/L (135-145); Total Protein 6.8 g/dL (6.5-8.0)
== END 2023-07-18 07:45 | disposition home or self-care (01) ==
LOC: HO.10HDL 07:44
PROVIDERS: Visit Provider Internal Medicine
DX: R73.02 Impaired glucose tolerance (oral) (principal)
CPT/HCPCS: 36415; 80053

== ENCOUNTER 2023-12-14 14:26 | Outpatient (AMB) | payer MEDICARE, SELFPAY ==
--- NOTE | 2023-12-14 14:29 | A.OFFVIS_ITS ---
Vital Signs 12/14/23 14:30 Height 5 ft 1 in Weight 127 lb 13.89 oz BMI 24.2 BP 90/50 L Blood Pressure Location Lt brachial Position Sitting Pulse 60 Intake Visit Reasons: 1 yr f/up Sap Architect Required: No Accompanied by: Self / Same As Patient Allergies No Known Allergies Allergy (Verified 07/11/23 08:05) Medication List - Last Reconciled 12/14/23 by Galdino Shannon MD aspirin 81 mg PO DAILY atorvastatin 80 mg PO DAILY calcium carbonate (Calcium 500) 500 mg PO DAILY latanoprost 0.005% 0 drps ophthalmic (eye) levothyroxine 100 mcg PO QAM vitamins A,C,S-cmri-azybmx 4,296 mcg-226 mg-90 mg (PreserVision AREDS) 1 cap PO BID zoledronic elhf-vbfjnhtx-eymzc 5 mg/100 mL (Reclast) ea IV HPI Comments Details: Elsie returns for follow-up regarding coronary artery disease and coronary artery bypass surgery. Overall, she states she feels fine. No cardiac symptoms whatsoever. Extremely active with no limitations. REPLACED BY [facility] Medical History Hearing loss Hospital discharge follow-up Encounter for monitoring amiodarone therapy Abnormal EKG Epigastric pain Chest pain Osteoporosis Left shoulder pain Left arm pain Hypothyroidism Pure hypercholesterolemia Surgical History History of total right knee replacement History of dental surgery History of coronary artery bypass graft History of colonoscopy History of wisdom tooth extraction Family History Father Diabetes Mother Bone marrow failure Paternal Grandfather Past heart attack Brother Myocardial infarction Stroke Family/Other CVD (cardiovascular disease) Social History Housing: House Alcohol intake: current Alcohol intake frequency: a few times a month Alcohol type: wine, hard liquor and other Patient Tobacco Use Status: Never used Tobacco e-Cigarette/Vaping Use: Never Used Second Hand Smoke Exposure: No service: No Current occupational status: retired Cognitive needs: No Hearing needs: No Vision needs: No Review of Systems Const Denies chills, Denies fatigue, Denies fever(s), Denies weight gain and Denies weight loss ENT Denies dizziness Card Denies chest pain, Denies leg edema, Denies lightheadedness, Denies palpitations, Denies dyspnea on exertion, Denies orthopnea and Denies other Resp Denies cough and Denies dyspnea on exertion GI Denies hematochezia and Denies change in stool character Musc Denies abnormal gait, Denies muscle weakness, Denies numbness, Denies radiating pain into limb and Denies tingling Neuro Denies abnormal gait, Denies dizziness, Denies numbness and Denies tingling Endo Denies fatigue and Denies palpitations Physical Exam Vital Signs: Last Vital Signs Pulse 60 12/14/23 14:30 BP 90/50 L 12/14/23 14:30 BMI result Body Mass Index 24.2 Const General: comfortable and no acute distress Orientation/consciousness: patient oriented x3 HEENT Other: Unremarkable Head: Yes normal to inspection Neck Neck: Yes normal visual inspection Chest Chest palpation & inspection: normal inspection of the chest Resp Auscultation: clear to auscultation bilaterally Cardio Palpation: normal PMI Heart sounds: S1 normal heart sound present, S2 normal heart sound present, no gallops, no murmurs and no rubs GI Palpation (GI): Soft to palpation Back/Spine/Pelvis Other: unremarkable Skin General skin exam: no rashes or lesions noted Neuro General: patient oriented x3 Extrem General: Yes normal to inspection Psych Mental Status: mental status grossly normal Office Procedures EKG Details: EKG with underlying sinus rhythm at 60/Min; no significant ST-T changes and otherwise unremarkable. [place]. [id number]-[id number], Complete Assessment & Plan Assessment & Plan (1) Atherosclerotic cardiovascular disease: Code(s): I25.10 - Atherosclerotic heart disease of [place] coronary artery without angina pectoris Category: Medical Plan: Continue aspirin and statins. (2) Status post aorto-coronary artery bypass graft: Code(s): Z95.1 - Presence of aortocoronary bypass graft Category: Surgical Plan: Recovered completely. Plan She will contact us with any concerns. Otherwise follow-up in 1 year. Coding Level of Care Code Est Pt Level 3 (52501) Diagnoses Atherosclerotic cardiovascular disease I25.10 Status post aorto-coronary artery bypass graft Z95.1 CPT Codes EKG - CPT: 02009-Pnehcefxcvxrqnqnf, Complete ([id number])
[2023-12-14 14:30] VITALS: BP 90/50; PULSE 60; BMI 24.2
== END 2023-12-14 14:55 | disposition home or self-care (01) ==
PROVIDERS: PCP Internal Medicine; Visit Provider Internal Medicine
DX: I25.10 Atherosclerotic heart disease of native coronary artery without angina pectoris (principal); Z95.1 Presence of aortocoronary bypass graft
CPT/HCPCS: 93010; 99213

== ENCOUNTER → 2023-12-14 14:26 | Outpatient (BNVA) | payer MEDICARE, SELFPAY | PROVIDERS: PCP Internal Medicine; Visit Provider Internal Medicine | DX: I25.10 Atherosclerotic heart disease of native coronary artery without angina pectoris (principal); Z95.1 Presence of aortocoronary bypass graft | CPT/HCPCS: 93005; 99212 ==

== ENCOUNTER 2024-07-23 07:17 | Outpatient (AMB) | payer MEDICARE, SELFPAY ==
[2024-07-23 07:46] VITALS: BP 130/70; BMI 23.4
--- NOTE | 2024-07-23 07:46 | A.OFFVIS_ITS ---
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 Accompanied by: Daughter Allergies No Known Allergies Allergy (Verified 07/23/24 07:57) Medication List - Last Reconciled 07/23/24 by Nicole Carey MD aspirin 81 mg PO DAILY atorvastatin 80 mg PO DAILY calcium carbonate (Calcium 500) 500 mg PO DAILY latanoprost 0.005% 0 drps ophthalmic (eye) levothyroxine 100 mcg PO QAM vitamins A,C,Y-fgwz-kxjtok 4,296 mcg-226 mg-90 mg (PreserVision AREDS) 1 cap PO BID zoledronic zskt-kvxvzjtx-uzopv 5 mg/100 mL (Reclast) ea IV HPI HPI Comments History of Present Illness Details The patient is a 74-year-old female presenting with the primary reason for a Medicare wellness exam and evaluation of ongoing lower back pain and insomnia. She reports chronic lower back pain persisting since last fall season, linked to minor vertebral compression fractures as noted in an X-ray. The pain manifests with stiffness upon transition from sitting to standing and is managed with ice and Aleve. She continues to participate in physical activities including cycling and golfing. Unresolved insomnia linked to personal worries contributes to her concern, with plans to initiate magnesium supplementation for sleep improvement. The patient maintains her health with vaccinations for tetanus diphtheria from 2019 and pneumonia. Yearly mammographic screenings are performed, with recent clearance after a follow-up scan earlier this month. Osteopenia was confirmed by a recent DEXA scan, and osteoporosis under the monitoring of her current OBGYN provider Dr. Ponce. She is treated for hypothyroidism with a daily dose of levothyroxine and managed for glaucoma with prescribed ophthalmic drops. She experienced a coronary artery bypass grafting in 2020 and has a past surgical history including dental surgery, knee replacement, and historical teeth extractions. [place] of care updated and reviewed. Ppp handed to patient. - Tetanus Diphtheria vaccine administere d in 2018, next due in 2028. - Recent pneumonia vaccination up to anamika e. - Routine mammogram conducted with a sub sequent follow-up showing normal results. - DEXA scan in 2022 indicating osteopeni a. - Osteoporosis management by Endocrinolo gy. - Routine evaluation for coronary artery health, status post bypass procedure. - No known allergies. - Current medication regimen: baby aspir in, atorvastatin, calcium, glaucoma eye drops, levothyroxine, vitamins A, C, E, zinc, copper. [facility] Medical History (Updated 07/23/24 @ 08:49 by Nicole Carey MD) Hearing loss Hospital discharge follow-up Encounter for monitoring amiodarone therapy Abnormal EKG Epigastric pain Chest pain Osteoporosis Left shoulder pain Left arm pain Hypothyroidism Pure hypercholesterolemia Surgical History History of total right knee replacement History of dental surgery History of coronary artery bypass graft History of colonoscopy History of wisdom tooth extraction Family History Father Diabetes Mother Bone marrow failure Paternal Grandfather Past heart attack Brother Myocardial infarction Stroke Family/Other CVD (cardiovascular disease) Social History Housing: House Alcohol intake: current Alcohol intake frequency: a few times a month Alcohol type: wine, hard liquor and other Patient Tobacco Use Status: Never used Tobacco e-Cigarette/Vaping Use: Never Used Second Hand Smoke Exposure: No service: No Current occupational status: retired Cognitive needs: No Hearing needs: No Vision needs: No Questionnaire Medicare Wellness Checkup [age] What gender do you identify with?: female During the past 4 weeks, how much have you been bothered by emotional problems s uch as feeling anxious, depressed, irritable, sad or downhearted, and blue?: slightly During the past 4 weeks, has your physical & emotional health limited your social activities with family, friends, neighbors, or groups?: not at all During the past 4 weeks, how much bodily pain have you generally had?: mild pain During the past 4 weeks, was someone available to help you if you needed & wanted help?: yes, a little During the past 4 weeks, what was the hardest physical activity you could do for at least 2 minutes?: moderate Can you get to places out of walking distance without help? (For eg., can you travel alone on buses, taxis or drive your car?): Yes Can you go shopping for groceries or clothes without someone's help?: Yes Can you prepare your own meals?: Yes Can you do your housework without help?: Yes Because of any health problems, do you need the help of another person with your personal care needs such as eating, bathing, dressing or getting around the house?: No Can you handle your own money without help?: Yes During the past 4 weeks, how would you rate your health in general?: very good During the past 4 weeks how have things been going for you?: pretty well Are you having difficulties driving your car?: no Do you always fasten your seat belt when you are in a car?: yes, usually During past 4 weeks, have you been bothered by the following: never: Falling or dizzy when standing up, Sexual problems?, Trouble eating well?, Teeth or denture problems? and Problems using the telephone? and often: Tiredness or fatigue? Have you fallen 2 or more times in the past year?: No Are you afraid of falling?: No Are you a smoker?: no During the past 4 weeks, how many drinks of wine, beer, or other alcoholic beverages did you have?: 1 drink or less per week Do you exercise for about 20 minutes 3 or more times a week?: yes, most of the time Have you been given information to help with the following?: yes: Hazards in your house that might hurt you? and yes: Keeping track of your medications? How often do you have trouble taking medicines the way you have been told to take them?: I do not have to take medicine How confident are you that you can control & manage most of your health problems?: very confident What is your race?: White Mini Mental State Exam (MMSE) Orientation What is the (year) (season) (date) (day) (month)?: year, season, date, day and month Where are we (state) (county) (town or city) (hospital) (floor)?: state, county, town or city, hospital/clinic and floor Registration Name of 3 unrelated objects clearly and slowly, then ask patient to repeat all 3 of them. (1st repeat determines score. Make sure they can repeat all three): object 1, object 2 and object 3 Attention & Calculation (CHOOSE ONE) Spell WORLD backwards (DLROW): 5 letters Recall Ask patient to repeat the 3 items from question #3.: object 1, object 2 and object 3 Language Show patient a wristwatch & ask what it is. Repeat for pencil.: watch and pencil Ask the patient to repeat the phrase 'No ifs, ands, or buts' after you.: correct Ask the patient to 'take a piece of paper with their right hand' 'fold paper in half' 'place paper on floor': take paper in right hand, fold paper in half and place paper on floor Print the sentence 'CLOSE YOUR EYES' on a piece. If patient actually closes eyes then score.: followed written direction Give patient a blank piece of paper & ask to write a sentence. Score if it con tains a noun & verb.: sentence contains subject and verb Ask patient to copy figure of intersecting pentagons exactly. Score if all 10 angles & 2 intersects are included.: all 10 angles present & 2 are intersected Score Score: 30 Activity of Daily Living Bathing - sponge bath, tub bath or shower: receives no assistance (gets in/out by self, if usual bathing means Dressing - getting clothes from closets & drawers, including inner/outer garments & fasteners.: gets clothes & gets completely dressed without help Toileting - going to the 'toilet room' for urine/bowel elimination & cleaning self/arranging clothes: goes to toilet room, cleans self, arranges clothes without help Transfer: moves in & out of bed and chair without help (may use support object) Continence: controls urination/bowel movements completely by self Feeding: feeds self without help Total Score: 0 Information obtained from: patient Using telephone: independent Traveling: independent Shopping: independent Preparing meals: independent Housework: independent Taking medicine: independent Managing money: independent PHQ-9 Over the last 2 weeks, how often have you been bothered by any of the following problems? 1. Little interest or pleasure in doing things: not at all 2. Feeling down, depressed, or hopeless: not at all 3. Trouble falling or staying asleep, or sleeping too much: nearly every day 4. Feeling tired or having little energy: more than half the days 5. Poor appetite or overeating: not at all 6. Feeling bad about yourself - or that you are a failure or have let yourself or your family down: not at all 7. Trouble concentrating on things, such as reading the newspaper or watching television: not at all 8. Moving or speaking so slowly that other people could have noticed. Or the opposite - being so fidgety or restless that you have been moving around a lot more than usual: not at all 9. Thoughts that you would be better off or of hurting yourself in some way: not at all Total score: 5 Depression Screening Interpretation: Positive Depression Screening Follow-up: Existing condition and Follow-up Visit Requested Depression Screening Done: Yes 63988 - PHQ-9 Billing: Yes Source: Developed by Drs. León Muniz, Og Johnston and colleagues, with an educational janeth from [employer]. Fall Risk Assessment Fall Risk Assessment Fall risk assessment: No Falls in past year AUDIT C Alcohol Use Questionnaire (AUDIT-C) 1. How often do you have a drink containing alcohol?: Monthly or less 2. How many drinks containing alcohol do you have on a typical day when you are drinking?: 1 or 2 3. How often do you have six or more drinks on one occasion?: Never Total Score: 1 Score Reviewed/Action Taken: No MARCO A-7 AMB Questionnaire MARCO A-7 Date MARCO A - 7 assessed: 07/23/24 Feeling nervous, anxious, or on edge: 0 = Not at all Not being able to stop or control worryin = Not at all Worrying too much about different things: 1 = Several days Trouble relaxin = Not at all Being so restless that it is hard to sit still: 0 = Not at all Becoming easily annoyed or irritable: 0 = Not at all Feeling afraid as if something awful might happen: 0 = Not at all Total MARCO A-7 score (0-4 normal; 5-9 mild; 10-14 moderate; 15-21 severe): 1 Source: Developed by Drs. León Muniz, Og Johnston and colleagues, with an educational janeth from [employer]. Thrive Questionnaire Date Thrive assessed: 07/23/24 I am a: Patient What is your living situation today?: I have a steady place to live Within the past 12 months, did the food you bought not last and you didn't have the money to get more?: Never true Within the past 12 months, did you worry whether your food would run out before you got money to buy more?: Never true Do you have trouble paying for medicines?: No Do you have trouble getting transportation to medical appointments?: No Do you have trouble paying your heating and electricity bill?: No Do you have trouble taking care of your child, family member or friend?: No Do you have trouble with day-to-day activities such as bathing, preparing meals, shopping, managing finances, etc.?: No Are you currently unemployed and looking for a job?: No Are you interested in more education?: No Please select the resources that you would like help with: None Currently or been in a relationship where the following occur: No concerns reported THRIVE Score: 0 Review of Systems Const All systems reviewed & are unremarkable except as noted in HPI and below Card Denies chest pain at rest, Denies chest pain with activity, Denies edema, Denies irregular heart rhythm, Denies claudication, Denies dyspnea, Denies dyspnea on exertion, Denies orthopnea, Denies paroxysmal nocturnal dyspnea and Denies slow heart rate Resp Denies cough, Denies dyspnea and Denies dyspnea on exertion GI Denies abdominal pain, Denies change in bowel habits, Denies excessive flatus, Denies nausea and Denies vomiting Neuro Denies confusion Psych Denies confusion Physical Exam Vital Signs: Last Vital Signs BP 130/70 07/23/24 07:46 BMI result Body Mass Index 23.4 Const General: No confusion Orientation/consciousness: patient oriented x3 and No confusion Resp Effort & Inspection: normal respiratory effort Auscultation: clear to auscultation bilaterally Cardio Jugular venous distension: no JVD Rate: regular rate Rhythm: regular rhythm Heart sounds: S1 normal heart sound present and S2 normal heart sound present Neuro General: patient oriented x3, no focal motor deficits and No confusion Romberg Test: Negative Extrem General: Yes full ROM Psych Appearance: grossly normal Assessment & Plan Assessment & Plan (1) Encounter for Medicare annual wellness exam: Code(s): Z00.00 - Encounter for general adult medical examination without abnormal findings (2) Insomnia: Code(s): G47.00 - Insomnia, unspecified Plan The patient?s lower back pain and vertebral compression fractures are managed conservatively using analgesics like Aleve and applying ice. Insomnia management includes initiating magnesium supplementation and adherence to sleep hygiene practices. Her regimen concerning osteoporosis, hypothyroidism, and glaucoma remains unchanged. Health status maintenance includes encouragement of her proactive engagement in physical activities, consumption of medications as prescribed, and adherence to upcoming medical follow-ups for cardiovascular and other preventive care. Patient was informed and verbally consented to the use of an ambient scribe for clinic note documentation during this visit. In-depth discussions included issues with chronic lower back pain and sleep disturbances. The risks and benefits of continuing non-pharmacologic management for back pain were discussed alongside the advantages of a constant active lifestyle within personal limits. Circumspect monitoring strategies for insomnia include integrating magnesium supplements and sleep hygiene counseling. Prophylactic health maintenance has been emphasized in light of her medical history, with an open dialogue and consent regarding proposed interventions and modifications. Possible strategies for reducing life stress and optimizing health through sleep support and effective medication adherence were also covered. Orders: Orders Lipid Panel Today E78.5 - Hyperlipidemia, unspecified Comprehensive [place]. Panel Fast Today Z00.00 - Encounter for general adult medical examination without abnormal findings Medications: New magnesium oxide 400 mg PO BEDTIME 90 tabs 1RF 90 days G47.00 - Insomnia, unspecified Patient Instructions: - Continue using ice and Aleve for back pain management. - Maintain an active lifestyle, avoiding movements that exacerbate pain. - Start magnesium supplements as discussed for insomnia. - Follow sleep hygiene practices to promote better rest. - Adhere to current medication regimen and vitamins. - Follow up with routine health evaluations and preventive measures. - Report any new or worsening symptoms promptly. - Keep scheduled appointments and plan a follow-up with specialists as advised. Quality Reporting (2020) Fall Risk Screening ([facility] 139) Fall risk assessment: No Falls in past year Depression/Bipolar (159/160/161/177) PHQ-9: Total score: 5 Coding Level of Care Code Medicare Subsequent (G0439) Est Pt Level 3 (06837) Diagnoses Encounter for Medicare annual wellness exam Z00.00 Insomnia G47.00 CPT Codes Advance Care Planning - Advance Care Planning discussion: On file, no changes ([id number]) Advance Care Planning - Time spent: 1-15 minutes, on File ([id number]) Additional Codes PHQ-9 - 16018 - PHQ-9 Billing: Yes ([id number]) Time Spent (min) 38 Advance Care Planning Advance Care Planning discussion: On file, no changes Date of discussion: 07/23/24 Who was present: patient and me Forms completed: Health Care Proxy Time spent: 1-15 minutes, on File Actual minutes spent: 1
== END 2024-07-23 08:49 | disposition home or self-care (01) ==
LOC: HO.HMCH 07:18
PROVIDERS: PCP Internal Medicine; Visit Provider Internal Medicine
DX: Z00.00 Encounter for general adult medical examination without abnormal findings (principal); G47.00 Insomnia, unspecified

== ENCOUNTER → 2024-07-23 07:17 | Outpatient (BNVA) | payer MEDICARE, SELFPAY | PROVIDERS: PCP Internal Medicine; Visit Provider Internal Medicine | DX: Z00.00 Encounter for general adult medical examination without abnormal findings (principal); G47.00 Insomnia, unspecified; E78.5 Hyperlipidemia, unspecified | CPT/HCPCS: 96127; 99212 ==

== ENCOUNTER 2024-07-31 08:19 | Outpatient (REF) | payer MEDICARE, SELFPAY ==
[2024-07-31 09:31] LABS: Alanine Aminotransferase 25 U/L (0-31); Alkaline Phosphatase 74 U/L (39-117); Anion Gap 10 (12-20); Aspartate Amino Transferase 37 U/L (5-31); Bilirubin Total 0.6 mg/dL (0.0-1.0); Blood Urea Nitrogen 19 mg/dL (9-16); Calcium 9.6 mg/dL (8.4-10.2); Carbon Dioxide 30 mmol/L (22-29); Chloride 108 mmol/L (96-108); Cholesterol 155 mg/dL (<200); Estimated Glomerular Filt Rate > 60; Glucose Fasting 111 mg/dL (60-99); HDL Cholesterol 60 mg/dL (>40); LDL Cholesterol Calculated 82 mg/dL (<100); Sodium 144 mmol/L (135-145); Total Protein 6.9 g/dL (6.5-8.0); Triglycerides 67 mg/dL (<150)
== END 2024-07-31 08:20 | disposition home or self-care (01) ==
LOC: HO.LAB 08:19
PROVIDERS: PCP Internal Medicine; Visit Provider Internal Medicine
DX: Z00.00 Encounter for general adult medical examination without abnormal findings (principal); E78.5 Hyperlipidemia, unspecified
CPT/HCPCS: 36415; 80053; 80061

== ENCOUNTER 2024-12-31 13:43 | Outpatient (AMB) | payer MEDICARE, SELFPAY ==
--- NOTE | 2024-12-31 13:54 | MHC.OFFVIS ---
Vital Signs 12/31/24 13:55 Height 5 ft 1 in Weight 126 lb 15.78 oz BMI 24.0 BP 110/62 Blood Pressure Location Lt brachial Position Sitting Pulse 62 Pulse Source Monitor Intake Visit Reasons: 1 YR FOLLOW UP Curator Of Manuscripts Required: No Accompanied by: Self / Same As Patient Allergies No Known Allergies Allergy (Verified 07/23/24 07:57) Medication List - Last Reconciled 12/31/24 by Galdino Shannon MD aspirin 81 mg PO DAILY atorvastatin 80 mg PO DAILY brimonidine-timolol 0.2-0.5 % (Combigan) 1 drp ophthalmic (eye) BID calcium carbonate (Calcium 500) 500 mg PO DAILY latanoprost 0.005% 0 drps ophthalmic (eye) levothyroxine 100 mcg PO QAM magnesium oxide 400 mg PO BEDTIME 90 days vitamins A,C,H-wrjt-yvzzsh 4,296 mcg-226 mg-90 mg (PreserVision AREDS) 1 cap PO BID zoledronic ujwn-qogsrzwi-grqck 5 mg/100 mL (Reclast) ea IV HPI Comments Details: Elsie returns for follow-up regarding coronary artery disease and coronary artery bypass surgery. She still plays golf and pursue physical activities like hiking and skiing but she feels that she is slowing down a bit. With these activities, she is still not noticed any concerns like angina. Otherwise, doing fine. [facility] Medical History Hearing loss Hospital discharge follow-up Encounter for monitoring amiodarone therapy Abnormal EKG Epigastric pain Chest pain Osteoporosis Left shoulder pain Left arm pain Hypothyroidism Pure hypercholesterolemia Surgical History History of total right knee replacement History of dental surgery History of coronary artery bypass graft History of colonoscopy History of wisdom tooth extraction Family History Father Diabetes Mother Bone marrow failure Paternal Grandfather Past heart attack Brother Myocardial infarction Stroke Family/Other CVD (cardiovascular disease) Social History Housing: House Alcohol intake: current Alcohol intake frequency: a few times a month Alcohol type: wine, hard liquor and other Patient Tobacco Use Status: Never used Tobacco e-Cigarette/Vaping Use: Never Used Second Hand Smoke Exposure: No service: No Current occupational status: retired Cognitive needs: No Hearing needs: No Vision needs: No Review of Systems Const Denies chills, Denies fatigue, Denies fever(s), Denies frequent falls, Denies weakness, Denies weight gain and Denies weight loss ENT Denies dizziness Card Denies chest pain, Denies leg edema, Denies lightheadedness, Denies palpitations, Denies dyspnea and Denies dyspnea on exertion Resp Denies cough, Denies dyspnea and Denies dyspnea on exertion GI Denies hematochezia Musc Denies abnormal gait, Denies muscle weakness, Denies numbness, Denies radiating pain into limb and Denies tingling Neuro Denies abnormal gait, Denies dizziness, Denies frequent falls, Denies numbness, Denies tingling and Denies weakness Endo Denies fatigue and Denies palpitations Physical Exam Vital Signs: Last Vital Signs Pulse 62 12/31/24 13:55 BP 110/62 12/31/24 13:55 BMI result Body Mass Index 24.0 Const General: comfortable and no acute distress Orientation/consciousness: patient oriented x3 HEENT Other: Unremarkable Head: Yes normal to inspection Neck Neck: Yes normal visual inspection Chest Chest palpation & inspection: normal inspection of the chest Resp Auscultation: clear to auscultation bilaterally Cardio Palpation: normal PMI Heart sounds: S1 normal heart sound present, S2 normal heart sound present, no gallops, no murmurs and no rubs GI Palpation (GI): Soft to palpation Back/Spine/Pelvis Other: unremarkable Skin General skin exam: no rashes or lesions noted Neuro General: patient oriented x3 Extrem General: Yes normal to inspection Psych Mental Status: mental status grossly normal Office Procedures EKG Details: EKG with underlying sinus rhythm at 62/Min; rightward axis; cannot exclude old septal infarct, but could be from body habitus; [place] [id number], Complete Assessment & Plan Assessment & Plan (1) Atherosclerotic cardiovascular disease: Code(s): I25.10 - Atherosclerotic heart disease of [place] coronary artery without angina pectoris Category: Medical Plan: Stable. Continue aspirin and statins. (2) Status post aorto-coronary artery bypass graft: Code(s): Z95.1 - Presence of aortocoronary bypass graft Category: Surgical Plan: Recovered completely. Plan Patient was informed and verbally consented to the use of an ambient scribe for clinic note documentation during this visit. Patient Instructions: - Continue regular physical activities, including golf and gym workouts, as tolerated. - Maintain a healthy diet. - Contact the clinic if new symptoms or concerns arise. Coding Level of Care Code Est Pt Level 3 (51965) Diagnoses Atherosclerotic cardiovascular disease I25.10 Status post aorto-coronary artery bypass graft Z95.1 CPT Codes EKG - CPT: 95988-Nqqyevpuagryoicjr, Complete ([id number])
[2024-12-31 13:55] VITALS: BP 110/62; PULSE 62; BMI 24.0
== END 2024-12-31 14:10 | disposition home or self-care (01) ==
LOC: HO.HCS 13:44
PROVIDERS: PCP Internal Medicine; Visit Provider Internal Medicine
DX: I25.10 Atherosclerotic heart disease of native coronary artery without angina pectoris (principal); Z95.1 Presence of aortocoronary bypass graft
CPT/HCPCS: 93010; 99213

== ENCOUNTER → 2024-12-31 13:43 | Outpatient (BNVA) | payer MEDICARE, SELFPAY | PROVIDERS: PCP Internal Medicine; Visit Provider Internal Medicine | DX: I25.10 Atherosclerotic heart disease of native coronary artery without angina pectoris (principal); Z95.1 Presence of aortocoronary bypass graft; R94.31 Abnormal electrocardiogram [ECG] [EKG] | CPT/HCPCS: 93005; 99212 ==

== ENCOUNTER 2025-01-29 07:27 | Outpatient (AMB) | payer MEDICARE, SELFPAY ==
[2025-01-29 07:58] VITALS: BP 104/62; PULSE 53; O2SAT 98; BMI 23.5
--- NOTE | 2025-01-29 07:58 | A.OFFPC_ITS ---
Vital Signs 01/29/25 07:58 Height 5 ft 1 in Weight 124 lb 2 oz BMI 23.5 BP 104/62 Blood Pressure Location Lt brachial Position Sitting Pulse 53 Pulse Source Pulse Oximeter Pulse Oximetry (%) 98 Oxygen Delivery Method Room Air Intake Visit Reasons: 6 month Election Supervisor Required: No Accompanied by: Self / Same As Patient Allergies No Known Allergies Allergy (Verified 01/29/25 08:20) Medication List - Last Reconciled 01/29/25 by Nicole Carey MD aspirin 81 mg PO DAILY atorvastatin 80 mg PO DAILY brimonidine-timolol 0.2-0.5 % (Combigan) 1 drp ophthalmic (eye) BID calcium carbonate (Calcium 500) 500 mg PO DAILY latanoprost 0.005% 0 drps ophthalmic (eye) levothyroxine 100 mcg PO QAM vitamins A,C,Y-xhjv-ydzukf 4,296 mcg-226 mg-90 mg (PreserVision AREDS) 1 cap PO BID zoledronic qndp-vlqfpwfw-hmpfo 5 mg/100 mL (Reclast) ea IV Tobacco use date assessed: 01/29/25 Fall risk assessment: No Falls in past year Last assessed Fall Risk: 01/29/25 Dental Screening Dental Screen Date: 01/29/25 Did you have a dental visit in the last 12 months?: Yes Did you have a dental problem in the last 6 months where you did not have access to dental care?: No Was dental information given to patient?: Patient has dentist HPI HPI Comments History of Present Illness Details The patient is a 74-year-old female presenting for a medication review, and to discuss insomnia and back stiffness. She reports issues with sleep, noting it has been better lately but is affected by stress, particularly worrying about her son. She has tried a prescribed form of magnesium in the past, which caused diarrhea and she could not tolerate. She currently uses an ygoa-nck-hmeeixz liquid called Sleepies if she is not drowsy by midnight. The patient also reports recent onset of stiffness in her back area, which she experiences after gardening or after driving for about two hours. She states it takes her a moment to straighten up, but it does not otherwise slow her down. The patient has a history of osteoporosis and is followed by Dr. Ponce for this condition. She receives a Reclast infusion once a year and is due for her next bone density scan next year, pending a specific date for insurance purposes. She also has a history of hypothyroidism, which is also being managed by Dr. Ponce. Her current medications include baby aspirin, atorvastatin 80 mg, calcium, le vothyroxine 100 mcg, and vitamins. She reports no known drug allergies. The patient is up to date on her COVID, flu, and tetanus vaccinations. [facility] Medical History (Updated 01/29/25 @ 11:03 by Nicole Carey MD) Hearing loss Hospital discharge follow-up Encounter for monitoring amiodarone therapy Abnormal EKG Epigastric pain Chest pain Osteoporosis Left shoulder pain Left arm pain Hypothyroidism Pure hypercholesterolemia Surgical History History of total right knee replacement History of dental surgery History of coronary artery bypass graft History of colonoscopy History of wisdom tooth extraction Family History Father Diabetes Mother Bone marrow failure Paternal Grandfather Past heart attack Brother Myocardial infarction Stroke Family/Other CVD (cardiovascular disease) Social History Housing: House Alcohol intake: current Alcohol intake frequency: a few times a month Alcohol type: wine, hard liquor and other Patient Tobacco Use Status: Never used Tobacco Tobacco use type: Cigarette e-Cigarette/Vaping Use: Never Used Second Hand Smoke Exposure: No service: No Current occupational status: retired Cognitive needs: No Hearing needs: No Vision needs: Yes Questionnaire PHQ-9 Over the last 2 weeks, how often have you been bothered by any of the following problems? 1. Little interest or pleasure in doing things: not at all 2. Feeling down, depressed, or hopeless: not at all 3. Trouble falling or staying asleep, or sleeping too much: several days 4. Feeling tired or having little energy: not at all 5. Poor appetite or overeating: not at all 6. Feeling bad about yourself - or that you are a failure or have let yourself or your family down: not at all 7. Trouble concentrating on things, such as reading the newspaper or watching television: not at all 8. Moving or speaking so slowly that other people could have noticed. Or the opposite - being so fidgety or restless that you have been moving around a lot more than usual: not at all 9. Thoughts that you would be better off or of hurting yourself in some way: not at all Total score: 1 Depression Screening Interpretation: Negative Depression Screening Done: Yes 61753 - PHQ-9 Billing: Yes Source: Developed by Drs. León Muniz, Marimar Trujillo, Og Cunha and colleagues, with an educational janeth from [employer] Thrive Questionnaire Date Thrive assessed: 01/22/25 I am a: Patient What is your living situation today?: I have a steady place to live Within the past 12 months, did the food you bought not last and you didn't have the money to get more?: Never true Within the past 12 months, did you worry whether your food would run out before you got money to buy more?: Never true Do you have trouble paying for medicines?: No Do you have trouble getting transportation to medical appointments?: No Do you have trouble paying your heating and electricity bill?: No Do you have trouble taking care of your child, family member or friend?: No Do you have trouble with day-to-day activities such as bathing, preparing meals, shopping, managing finances, etc.?: No Are you currently unemployed and looking for a job?: Yes Are you interested in more education?: No Please select the resources that you would like help with: None Currently or been in a relationship where the following occur: No concerns reported THRIVE Score: 0 AUDIT C Alcohol Use Questionnaire (AUDIT-C) 1. How often do you have a drink containing alcohol?: 2-4 times a month 2. How many drinks containing alcohol do you have on a typical day when you are drinking?: 1 or 2 3. How often do you have six or more drinks on one occasion?: Never Total Score: 2 MARCO A-7 AMB Questionnaire MARCO A-7 Date MARCO A - 7 assessed: 07/23/24 Feeling nervous, anxious, or on edge: 0 = Not at all Not being able to stop or control worryin = Several days Worrying too much about different things: 0 = Not at all Trouble relaxin = Not at all Being so restless that it is hard to sit still: 0 = Not at all Becoming easily annoyed or irritable: 1 = Several days Feeling afraid as if something awful might happen: 0 = Not at all Total MARCO A-7 score (0-4 normal; 5-9 mild; 10-14 moderate; 15-21 severe): 2 Source: Developed by Drs. León Muniz, Marimar Trujillo, Og Cunha and colleagues, with an educational janeth from [employer] Review of Systems Const All systems reviewed & are unremarkable except as noted in HPI and below Card Denies chest pain at rest, Denies chest pain with activity, Denies edema, Denies irregular heart rhythm, Denies claudication, Denies dyspnea, Denies dyspnea on exertion, Denies orthopnea, Denies paroxysmal nocturnal dyspnea and Denies slow heart rate Resp Denies cough, Denies dyspnea and Denies dyspnea on exertion GI Denies abdominal pain, Denies change in bowel habits, Denies excessive flatus, Denies nausea and Denies vomiting Physical exam (Primary Care) Vital Signs: Last Vital Signs Pulse 53 01/29/25 07:58 BP 104/62 01/29/25 07:58 Pulse Ox 98 01/29/25 07:58 Oxygen Delivery Method Room Air 01/29/25 07:58 BMI result Body Mass Index 23.5 Tobacco/Smoking Status: Tobacco use Status Tobacco use date assessed 01/29/25 01/29/25 07:59 Patient Tobacco Use Status Never used Tobacco 01/29/25 07:59 Tobacco use type Cigarette 01/29/25 07:59 e-Cigarette/Vaping Use Never Used 01/29/25 07:59 PHQ-9: PHQ-9 Score PHQ-9: Total score 1 01/29/25 08:52 Depression Screening Interpretation: Negative Thrive Assessment: Date of Thrive Assessment Date Thrive assessed 01/22/25 01/29/25 07:59 Currently or been in a relationship where the following occur: No concerns reported Resp Effort & Inspection: normal respiratory effort Auscultation: clear to auscultation bilaterally Cardio Jugular venous distension: no JVD Rate: regular rate Rhythm: regular rhythm Heart sounds: S1 normal heart sound present and S2 normal heart sound present Extrem General: Yes full ROM Immunizations pneumoc 20-radha conj-dip cr(PF) 0.5 mL IM syringe Performing Provider: Nicole Carey MD [facility] Administered by: WILLI Potts on 01/29/25 08:52 Dose Route Admin Location Dispensed Lot Number Expiration Date [facility] Regional Planner 0.5 mL IM Left Deltoid 0.5 mL [id number] 11/11/25 8770-3983-64 [employer] /PFIZER Total Dispensed Waste 0.5 mL 0 % VIS Given Date VIS Provided VIS Publication Date 01/29/25 Single Vaccine 24 Eligibility Eligibility Date Funding Source Not [facility] Eligible 01/29/25 Private Coding Level of Care Code Est Pt Level 4 (20305) Complex EM visit Add On G2211 Diagnoses Hypothyroidism, unspecified type E03.9 Hypothyroidism type: unspecified Age-related osteoporosis without current pathological fracture M81.0 Osteoporosis type: age-related Presence of current pathological fracture: without current pathological fracture Insomnia G47.00 Pure hypercholesterolemia E78.00 Lumbar pain M54.50 Additional Codes PHQ-9 - 55381 - PHQ-9 Billing: Yes ([id number]) Time Spent (min) 21 Assessment & Plan Assessment & Plan (1) Hypothyroidism: Code(s): E03.9 - Hypothyroidism, unspecified Category: Medical Qualifiers: Hypothyroidism type: unspecified Qualified Code(s): E03.9 - Hypothyroidism, unspecified (2) Osteoporosis: Code(s): M81.0 - Age-related osteoporosis without current pathological fracture Category: Medical Qualifiers: Osteoporosis type: age-related Presence of current pathological fracture: without current pathological fracture Qualified Code(s): M81.0 - Age- related osteoporosis without current pathological fracture (3) Insomnia: Code(s): G47.00 - Insomnia, unspecified Category: Medical (4) Pure hypercholesterolemia: Code(s): E78.00 - Pure hypercholesterolemia, unspecified Category: Medical (5) Lumbar pain: Code(s): M54.50 - Low back pain, unspecified Category: Medical Plan Plan 1. Insomnia The patient reports insomnia, which is exacerbated by stress. A prior trial of prescribed magnesium, likely oxide or citrate, was discontinued due to diarrhea. Advised to try znzk-atm-wsfvkge magnesium glycinate 250-300 mg nightly, as this formulation is less likely to cause gastrointestinal side effects. 2. Back Stiffness The patient reports stiffness in her back area after activities like gardening and prolonged driving, which is likely mechanical. Recommended conservative management with application of heat and use of topical Voltaren gel. Provided education on proper body mechanics for bending to reduce back strain, advising her to keep her back as straight as possible. 3.Pure hypercholesterolemia Continue statins 4. Osteoporosis The patient is followed by Dr. Ponce for osteoporosis and receives annual Reclast infusions. A bone density scan is planned for next year, pending insurance authorization. No changes to management were made at this visit. 5. Hypothyroidism The patient's hypothyroidism is managed by Dr. Ponce, and she was seen by her in October. Thyroid labs were not ordered at this visit as she is being followed by her specialist. Orders: Orders Pneumococcal 20 Immunization Today Z23 - Encounter for immunization Comprehensive [place]. Panel Fast 6 Months R73.02 - Impaired glucose tolerance (oral) Lipid Panel 6 Months E78.5 - Hyperlipidemia, unspecified
--- OUTSIDE RECORDS SUMMARY | 2025-01-29 15:05 | XMS_ITS | Encounter Summary ---
Author Organization [facility] Address [address] [facility] [address] [place] [phone] Phone Care Team Providers Care Historical Manuscripts Curator Name Role Phone Nicole Nelson MD Primary Care Provid er Encounter Details Date Type Department Care Team (Late st Contact Info) Description 04/10/2023 Procedure Pass OR Admitting Dept - Virtual Department [address] [place] [address] Social History Tobacco Use Types Packs/Day Years Used Date Smoking Tobacco: Never Smokeless Tobacco: Never Alcohol Use Standard Drinks/Week Comments Never 0 (1 standard drink = 0.6 oz pur e alcohol) Education Answer Date Recorded Are you interested in more education? Not on faustino e 09/30/2022 Are you concerned about learning? Not on file 09/30/2022 No 09/30/2022 No 09/30/2022 Digital Access Answer Date Recorded No 09/30/2022 No 09/30/2022 Reliable internet access at home? Not on file 09/30/2022 Device with a working camera? Not on file Intimate Partner Violence Answer Date R ecorded Are you denied basic needs s uch as food, clothing, or medical care? No 04/10/2023 In the past 12 months have y ou been in a relationship with a person who hurts, threatens, or tries to control you? No 04/10/2023 Are you denied basic needs s uch as food, clothing, or medical care? No 04/10/2023 In the past 12 months have y ou been in a relationship with a person who hurts, threatens, or tries to control you? No 04/10/2023 Comments No Sex and Gender Information Value Date Recorded Sex Assigned at Not on file Legal Sex Female 11:58 AM EDT Gender Identity Not on file Sexual Orientation Not on file documented as of this encounter Functional Status * Calculated C-SSRS Risk Score (Lifetime/Recent) Answer Date of Assessment Author No Risk Indicated 04/10/2023 4:32 PM Nelida Walsh RN * [place] Suicide Severity Rating Scale (Screener/Recent Self-Report) Question Answer Date of Assessment Author 1. Wish to be (Past 1 Month) No 024 4:32 PM Nelida Walsh RN 2. Non-Specific Active Suici arun Thoughts (Past 1 Month) No 04/10/2023 4:32 PM Nelida Walsh RN 6. Suicidal Behavior (Lifetime) No 4:32 PM Nelida Walsh RN documented as of this encounter Plan of Treatment Not on file documented as of this encounter Visit Diagnoses Not on filedocumented in this encounter Care Teams Historical Manuscripts Curator Relationship Specialty Start Date End Date Nicole Nelson MD [address] [place] [address] PCP - General Internal Medicine 11/23/22 documented as of this encounter Additional Source Comments The information contained in this document represents components of the legal health record. It is not the complete legal health record.[facility]
--- OUTSIDE RECORDS SUMMARY | 2025-01-29 15:05 | XMS_ITS | Encounter Summary ---
Author Organization [facility] Address [address] [facility] [address] [place] [phone] Phone Care Team Providers Care Store Sales Leader Name Role Phone Nicole Nelson MD Primary Care Provid er Encounter Details Date Type Department Care Team (Late st Contact Info) Description 12/07/2022 Procedure Pass [facility], [facility] Scan - [address] [address] Social History Tobacco Use Types Packs/Day Years Used Date Smoking Tobacco: Never Assessed Education Answer Date Recorded Are you interested in more education? Not on faustino e 09/30/2022 Are you concerned about learning? Not on file 09/30/2022 No 09/30/2022 No 09/30/2022 Digital Access Answer Date Recorded No 09/30/2022 No 09/30/2022 Reliable internet access at home? Not on file 09/30/2022 Device with a working camera? Not on file Comments Unknown Sex and Gender Information Value Date Recorded Sex Assigned at Not on file Legal Sex Female 11:58 AM EDT Gender Identity Not on file Sexual Orientation Not on file documented as of this encounter Plan of Treatment Not on file documented as of this encounter Visit Diagnoses Not on filedocumented in this encounter Care Teams Store Sales Leader Relationship Specialty Start Date End Date Nicole Nelson MD [address] [place] [address] PCP - General Internal Medicine 11/23/22 documented as of this encounter Additional Source Comments The information contained in this document represents components of the legal health record. It is not the complete legal health record.[facility]
--- OUTSIDE RECORDS SUMMARY | 2025-01-29 15:05 | XMS_ITS | Encounter Summary ---
Author Organization [facility] Address [address] [facility] [address] [place] [phone] Phone Care Team Providers Care Railroad Brake Repairer Name Role Phone Nicole Nelson MD Primary Care Provid er Encounter Details Date Type Department Care Team (Late st Contact Info) Description 08/29/2023 Procedure Pass OR Admitting Dept - Virtual Department [address] [place] [address] Social History Tobacco Use Types Packs/Day Years [...] on filedocumented in this encounter Care Teams Railroad Brake Repairer Relationship Specialty Start Date End Date Nicole Nelson MD [address] [place] [address] PCP - General Internal Medicine 11/23/22 documented as of this encounter Additional Source Comments The information contained in this document represents components of the legal health record. It is not the complete legal health record.[facility]
--- OUTSIDE RECORDS SUMMARY | 2025-01-29 15:05 | XMS_ITS | Clinical Summary ---
Author Organization [facility] Address [address] [place] [id number] Phone Care Team Providers Care Roller Skate Assembler Name Role Phone Nicole Nelson MD Primary Care Provid er Allergies Active Allergy Reactions Criticality Noted Date Comments Tree And Shrub Pollen 05/25/2023 Medications atorvastatin (LIPITOR) 80 MG tablet Take 1 tablet by mouth nightly at bedtime. 3 Active levothyroxine (SYNTHROID, LEVOTHROID) 100 MCG tablet Take 100 mcg by mouth every morning. Active latanoprost (XALATAN) 0.005 % ophthalmic solution LOCATION: BOTH EYES. APPLY ONE DROP TO EACH EYE AT BEDTIME 3 Active denosumab (PROLIA) 60 mg/mL Syrg subcutaneous syringe Inject 60 mg under the skin as directed. Last injection February 10, 2022 Every 6 months. Active calcium carbonate (TUMS ULTRA) 1,000 mg (400 mg elemental) Chew Take 1,000 mg by mouth every morning. 2 tabs Active fexofenadine (ROLANDO) 60 MG tablet Take 60 mg by mouth continuous prn. Active vit A/vit C/vit E/zinc/copper (PRESERVISION AREDS ORAL) Take by mouth. Act georgina multivitamins capsule Take 1 capsule by mouth daily. Active senna (SENOKOT) 8.6 mg tablet Take 2 tablets by mouth nightly at bedtime as needed for constipation. 4 Active celecoxib (CELEBREX) 100 MG capsule Take 1 capsule (100 mg total) by mouth 2 (two) times a day for 28 days. 56 capsule 4 Active zoledronic acid/mannitol-isaiah er (RECLAST IV) Inject into the vein. Active Active Problems Problem Noted Date Diagnosed Date Total knee replacement status, right 04/10/2023 Osteoporosis 12/29/2022 Assessment & Plan (12/29/2022 11:11 AM EDT): Follows with [facility], Dr. Dinero. Her last Dexa Bone Density scan was done on 06/09/22 which showed osteopenia. On medical management with denosumab (Prolia) mg/mL subcutaneous injection, last down on 02/10/2022. Discussed that recommended hold for Prolia is 6 months before elective joint replacement surgery. She plans to follow-up with her mechanical supervisor to determine next steps with regard to medical management. Preop examination 12/29/2022 Assessment & Plan (12/29/2022 12:17 PM EDT): 72 [address] old patient of Dr. Samuel Carey with planned right total knee replacement on 04/10/22. Procedure risk is intermediate. Patient denies symptoms associated with acute coronary syndromes including unstable or severe angina, SD within 1 month, severe CHF, high grade arrhythmia or symptomatic valvular disease. Medical risk assessment at the surgical optimization clinic are as follows. MCHUGH cardiovascular risk score is 0.7 % risk of myocardial infarction or cardiac arrest, intraoperatively or up to 30 day post-operatively. If <1%, no further cardiac work-up recommended. STOP BANG score shows 2 points indicating a low risk of sleep apnea. DASI score was 44.95 points, able to achieve at least 8.27 METS. If DASI >18, no further cardiac testing recommended. NSQIP cardiovascular risk score was below average at 0.1 % risk of cardiac complication, and average at 1.0 % risk of VTE. RCRI score was 0.9 % risk for cardiovascular event including myocardial infarction, pulmonary edema, arrhythmia, cardiac arrest or complete heart block. This reflects low risk on the scale. The patient has been evaluated preoperatively by cardiology and determined to be intermediate risk, ok to proceed with orthopedic surgery without further work up. Blood work from 12/14/22 shows a hemoglobin A1c of 5.5%. CBC and BMP are unremarkable with a creatinine of 1.10, eGFR 54. Noted to have sinus bradycardia, noted on recent ECG, HR 55 bpm, on metoprolol 50 mg PO daily. Patient denies any chest pain or MOORE, no shortness of breath, syncope or pre-syncope. Anesthetic management should avoid exacerbation of bradycardia due to vagal reflexes, a high spinal block, or agents that increase vagal tone. The patient can proceed to the intended procedure without further work-up. She should have standard DVT and antibiotic prophylaxis. The patient was instructed to discontinue use of any NSAIDs, fish oil, turmeric, herbal supplements and multivitamins for 1 week before surgery.The patient has the following relative contraindications to same day discharge following joint replacement surgery: CAD/SD s/p CABG x 2. Chronic kidney disease (CKD) 12/29/2022 Assessment & Plan (12/29/2022 11:56 AM EDT): Cr 1.10, eGFR 54. Recommend to maintain adequate hydration, avoid NSAID's and nephrotoxic medications, renally dose morphine. Gastroesophageal reflux disease 12/29/2022 Assessment & Plan (12/29/2022 11:58 AM EDT): Medically managed on calcium carbonate 1,000 mg PO daily. Hold on the morning of surgery. Coronary atherosclerosis 12/07/2021 023 Assessment & Plan (12/29/2022 11:06 AM EDT): Follows with Dr.Hariharan Shannon/Cardiovascular at [facility] for CAD s/p CABG x 2 in 01/2021. On current medical management with aspirin 81 mg PO daily, and metoprolol succinate 50 mg PO daily. Patient reports having some very mild, transient lightheadedness/orthostatic hypotension, with sitting to standing which lasts for a few seconds then passes. (Plan is to decrease metoprolol dose from 50 mg to 25 mg, but not until following knee surgery.) She has good exercise tolerance and no other cardiorespiratory or exertional symptoms. In cardiology office on 12/13/22, EKG showed sinus bradycardia, HR 55/min; cannot exclude old septal infarct, normal NH and corrected QT (similar to prior). She was seen on 06/02 for preoperative cardiac clearance, determined to be an intermediate cardiac risk for TKA, may proceed without further cardiac work-up. Instructed to continue on aspirin and metoprolol perioperatively, including on the morning of surgery. Glaucoma 12/07/2021 12/29/2022 Assessment & Plan (12/29/2022 11:54 AM EDT): Continue on latanoprost ophthalmic solution perioperatively. Hypothyroidism 12/07/2021 12/29/2022 Assessment & Plan (12/29/2022 11:06 AM EDT): Continue on levothyroxine 100 mcg PO every morning perioperatively. Seasonal allergies 12/07/2021 12/29/2022 Assessment & Plan (12/29/2022 11:56 AM EDT): Continue on fexofenadine 60 mg PO daily perioperatively. Resolved Problems Problem Noted Date Diagnosed Date Resolved Date Graves' disease 12/07/2021 12/29/2022 12/29/2022 Family History Medical History Relation Comments Heart attack Brother Obesity Brother Down syndrome Daughter Diabetes Father Heart attack Father Obesity Father Anemia Mother Relation Status Comments Brother (Age 60) Daughter Alive Father (Age 75) Mother (Age 72) Son Alive Social History Tobacco Use Types Packs/Day Years Used Date Smoking Tobacco: Never Smokeless Tobacco: Never Tobacco Cessation:Counseling Given: Not Answered Alcohol Use Standard Drinks/Week Comments Never 0 [...] on file Sexual Orientation Not on file Last Filed Vital Signs Vital Sign Reading Time Taken Comments Blood Pressure 147/58 08/29/2023 1:15 PM EDT Pulse 65 08/29/2023 12:30 PM EDT Temperature 36.3 C (97.3 F) 08/29/2023 1:15 PM EDT Respiratory Rate 16 08/29/2023 12:30 PM EDT Oxygen Saturation 100% 08/29/2023 1:15 PM EDT Inhaled Oxygen Concentration - - Weight 57.6 kg (127 lb) 08/25/2023 1:43 PM EDT Height 149.9 cm (4' 11 ) 08/25/2023 1:43 PM EDT Body Mass Index 25.65 08/25/2023 1:43 PM EDT Plan of Treatment Health Maintenance Due Date Last Done Comments TSH LEVEL 1952 DEPRESSION SCREENING 1964 HEPATITIS C SCREENING 1970 MAMMOGRAM 1992 COLOGUARD 1997 COLONOSCOPY 1997 COLORECTAL CANCER SCREENING 1997 FIT TEST 1997 FOBT 1997 SIGMOIDOSCOPY 1997 VIRTUAL COLONOSCOPY 1997 OSTEOPOROSIS SCREENING INITIAL (ONE-TIME) 2017 INFLUENZA VACCINE (#1) 2024 , 12/09/2022, 12/22/2021, Additional history exists COVID-19 VACCINE (2024- season) 2024 12/09/2022, 12/22/2021, 07/01/2021, Additional history exists Adult Td,Tdap Booster 04/17/2028 04/17/2018, 009 ZOSTER VACCINES Completed 02/19/2018, 12/13/2017 PNEUMOCOCCAL VACCINES (50+ years) Completed 12/06/2019, 12/27/2018, 12/26/2018 RSV VACCINE Completed 01/04/2023 SMOKING STATUS SCREENING (Once After 26 Yrs) Completed 04/17/2024 HEPATITIS A VACCINES Aged Out No long er eligible based on patient's age to complete this topic HIB VACCINES Aged Out No longer eligi ble based on patient's age to complete this topic MENINGOCOCCAL VACCINES (ACWY) Aged Out No longer eligible based on patient's age to complete this topic MENINGOCOCCAL VACCINES (B) Aged Out N o longer eligible based on patient's age to complete this topic Medical Devices Implanted Type Area Cloth Tearer Device Identifier Shelf Expiration Date Model / Serial / Lot Bone Cement Antibiotic Refobacin - [id number] Implanted:Qty: 2 on 04/10/2023 by León Lai MD at [facility] Right: Knee [employer]URIEL [employer] [id number] 09/09/2025 [id number] / / [id number] Tray Itotal Identity Cr Tibial - [id number] Implanted:Qty: 1 on 04/10/2023 by León Lai MD at [facility] Right: Knee CONFORMIS 04/12/2024 [id number] / / [id number] Itotal Identity Cr Femoral Implant Right Implanted:Qty: 1 on 04/10/2023 by León Lai MD at [facility] Right: Knee CONFORMIS 04/12/2024 [id number] / / [id number] Knee Implant 29mmx6 Patella Itotal Ipoly 06 - [id number] Implanted:Qty: 1 on 04/10/2023 by León Lai MD at [facility] Right: Knee CONFORMIS 03/12/2025 [id number] / / [id number] Itotal Identity Cr Tibial Insert, Ipoly Xe Single, 6mm, Right Implanted:Qty: 1 on 04/10/2023 by León Lai MD at [facility] Right: Knee CONFORMIS 04/12/2024 [id number] / / [id number] Insurance MEDICARE PART A & B [employer] CROSS MEDEX SUPPLEMENT MEDICARE PART A & B [employer] CROSS MEDEX SUPPLEMENT MEDICARE PART A & B [employer] MEDEX SUPPLEMENT MEDICARE PART A & B [employer] MEDEX SUPPLEMENT MEDICARE PART A & B [employer] MEDEX SUPPLEMENT MEDICARE PART A & B BLUE CROSS MEDEX SUPPLEMENT Advance Directives For more information, please contact: [phone] (9AM - 5PM [facility], Monday-Monday) Documents on File Type Date Recorded Patient Bio Medical Technician Expl anation Durable Power of Process Improvement Engineer 04/12/2023 6:32 PM Healthcare Proxy 04/12/2023 6:27 PM * Full Code (Latest Code Status on File) Date Activated Date Inactivated Comments 04/10/2023 9:04 AM Question Answer Comments Code Status Confirmed With: Patient Care Teams Roller Skate Assembler Relationship Specialty Start Date End Date Nicole Nelson MD [address] [place] [address] PCP - General Internal Medicine 11/23/22 Additional Source Comments The information contained in this document represents components of the legal health record. It is not the complete legal health record.[facility]
== END 2025-01-29 08:47 | disposition home or self-care (01) ==
LOC: HO.HMCH 07:28
PROVIDERS: PCP Internal Medicine; Visit Provider Internal Medicine
DX: E03.9 Hypothyroidism, unspecified (principal); M81.0 Age-related osteoporosis without current pathological fracture; G47.00 Insomnia, unspecified; E78.00 Pure hypercholesterolemia, unspecified; M54.50 Low back pain, unspecified; Z23 Encounter for immunization

== ENCOUNTER → 2025-01-29 07:27 | Outpatient (BNVA) | payer MEDICARE, SELFPAY | PROVIDERS: PCP Internal Medicine; Visit Provider Internal Medicine | DX: M81.0 Age-related osteoporosis without current pathological fracture (principal); E03.9 Hypothyroidism, unspecified; G47.00 Insomnia, unspecified; E78.00 Pure hypercholesterolemia, unspecified; M54.50 Low back pain, unspecified; Z13.31 Encounter for screening for depression; Z23 Encounter for immunization | CPT/HCPCS: 90471; 90677; 96127; 99212 ==